=== PATIENT | male | born 2000 | race Caucasian/White ===

== ENCOUNTER 2020-01-26 12:26 | Emergency (ER) | payer MEDICAID, OTHER ==
[~2020-01-26] VITALS: Ht 165.1 cm; Wt 68.2 kg
[~2020-01-26 12:26] MED LIST: ALBU6.7H9 INH; FOCALIN; RISP0.5T38 PO
[2020-01-26 13:27] VITALS: BP 123/78
[2020-01-26] MEDS ORDERED: acetaminophen 325mg tablet PO ONE (13:50)
[2020-01-26] MEDS ORDERED: TETanus/Pertussis (Acell)/Diphther VAC/PF (Tdap-Adult) 0.5ml syringe IMVAC ONE (13:50)
[2020-01-26] MEDS ORDERED: LIDOcaine 1% W/epiNEPHrine 1:200,000 10ml vial IJ ONE (13:50)
--- NOTE | 2020-01-26 14:16 | NUR ---
Nelson DONATO called with
== END 2020-01-26 14:41 | disposition home or self-care (01) ==
LOC: ER 12:26
DX: S01.81XA Laceration without foreign body of other part of head, initial encounter (principal); J45.909 Unspecified asthma, uncomplicated; F41.0 Panic disorder [episodic paroxysmal anxiety]; F10.10 Alcohol abuse, uncomplicated; F12.90 Cannabis use, unspecified, uncomplicated; Z88.0 Allergy status to penicillin; Z98.890 Other specified postprocedural states; Z79.899 Other long term (current) drug therapy; Y08.89XA Assault by other specified means, initial encounter; Y93.89 Activity, other specified; Y92.89 Other specified places as the place of occurrence of the external cause; Y99.8 Other external cause status
CPT/HCPCS: 12013; 90471; 90715; 99283

== ENCOUNTER 2021-12-04 09:27 | Emergency (ER) | payer MEDICAID, OTHER ==
[~2021-12-04] VITALS: Ht 167.6 cm; Wt 99.8 kg
[2021-12-04] MEDS ORDERED: ondansetron/PF 4mg/2ml inj IV ONE (09:50)
[2021-12-04] MEDS ORDERED: morphine 4 MG/ML inj SYRINge IV ONE (09:50)
[2021-12-04] MEDS ORDERED: iohexol 300mg/ml 100ml inj. ONE (09:57)
--- NOTE | 2021-12-04 10:05 | NUR ---
to ct via stretcher. per provider, ok to take pt to ct prior to labs.
--- NOTE | 2021-12-04 10:48 | NUR ---
cpsine cleared by provider.
[2021-12-04 11:00] VITALS: BP 113/70
[2021-12-04] MEDS ORDERED: IBUP-1984 PO ×2 (11:32→13:43)
--- NOTE | 2021-12-04 12:10 | NUR ---
sling provided for pt's right arm. steady ambulation, no distress.
== END 2021-12-04 12:18 | disposition home or self-care (01) ==
LOC: ER 09:28
DX: M25.521 Pain in right elbow (principal); M54.50 Low back pain, unspecified; J45.909 Unspecified asthma, uncomplicated; F41.9 Anxiety disorder, unspecified; F12.90 Cannabis use, unspecified, uncomplicated; Z98.890 Other specified postprocedural states; Z72.89 Other problems related to lifestyle; Z88.0 Allergy status to penicillin; Z79.899 Other long term (current) drug therapy; W19.XXXA Unspecified fall, initial encounter; Y93.89 Activity, other specified; Y92.89 Other specified places as the place of occurrence of the external cause; Y99.8 Other external cause status
CPT/HCPCS: 70450; 71260; 72125; 73080; 74177; 96374; 96375; 99285; J2270; J2405; Q9967

== ENCOUNTER 2021-12-06 10:29 | Emergency (ER) | payer OTHER ==
[~2021-12-06] VITALS: Ht 167.6 cm; Wt 100.0 kg
[~2021-12-06 10:29] MED LIST changes: +IBUP-1984 PO
[2021-12-06 10:34] VITALS: BP 126/87
== END 2021-12-06 10:40 | disposition home or self-care (01) ==
LOC: ER 10:29
DX: Z02.89 Encounter for other administrative examinations (principal); J45.909 Unspecified asthma, uncomplicated; F41.9 Anxiety disorder, unspecified; F12.90 Cannabis use, unspecified, uncomplicated; Z98.890 Other specified postprocedural states; Z72.89 Other problems related to lifestyle; Z88.0 Allergy status to penicillin; Z79.899 Other long term (current) drug therapy
CPT/HCPCS: 99281

== ENCOUNTER 2024-05-24 10:23 | Emergency (ER) | payer MEDICAID, OTHER ==
[~2024-05-24] VITALS: Ht 177.8 cm; Wt 85.0 kg
[~2024-05-24 10:23] MED LIST changes: +ALBU6.7H14 INH; -ALBU6.7H9 INH; -IBUP-1984 PO
[2024-05-24] MEDS: diazepam inj 5 MG/ML inj. IV ONE ×2 (11:02→12:05)
[2024-05-24] MEDS: diphenhydrAMINE 50 mg/ml inj IV ONE (11:03)
[2024-05-24] MEDS: normal saline 1000ML IV soln IVB ONE (11:03)
[2024-05-24] MEDS: metoclopramide 5 mg/ml inj IV ONE (11:03)
[2024-05-24 11:31] LABS: BASOPHILS # (AUTO) 0.1 X10'3 (0-0.2); BASOPHILS % (AUTO) 0.8 % (0-1); EOSINOPHILS # (AUTO) 0.1 X10'3 (0-0.9); EOSINOPHILS % (AUTO) 0.6 % (0-6); HEMATOCRIT 44.2 % (42.0-52.0); HEMOGLOBIN 15.1 g/dl (14.0-17.9); LYMPHOCYTES # (AUTO) 1.3 X10'3 (1.1-4.8); LYMPHOCYTES % (AUTO) 10.7 % (21-51); MEAN CORPUSCULAR HEMOGLOBIN 29.6 PG (27.0-31.0); MEAN CORPUSCULAR HGB CONC 34.1 g/dL (33.0-36.5); MEAN PLATELET VOLUME 8.8 FL (7.4-10.4); MONOCYTES # (AUTO) 0.5 X10'3 (0-0.9); MONOCYTES % (AUTO) 4.3 % (2-12); NEUTROPHILS # (AUTO) 10.5 X10'3 (1.8-7.7); NEUTROPHILS % (AUTO) 83.6 % (42-75); PLATELET COUNT 278 X10'3 (140-440); RED BLOOD COUNT 5.08 X10'6 (4.70-6.10); WHITE BLOOD COUNT 12.6 X10'3 (4.5-11.0)
[2024-05-24 11:41] LABS: ALANINE AMINOTRANSFERASE 39 U/L (12-78); ALBUMIN 4.8 G/DL (3.4-5.0); ALBUMIN/GLOBULIN RATIO 1.2 (1.1-1.5); ALKALINE PHOSPHATASE 127 IU/L (46-116); ANION GAP 14 (8-16); ASPARTATE AMINO TRANSFERASE 18 U/L (10-37); BILIRUBIN,TOTAL 0.7 MG/DL (0.1-1.0); BLOOD UREA NITROGEN 17 MG/DL (7-18); BUN/CREATININE RATIO 18.1 (10.0-20.0); CALCIUM 9.9 MG/DL (8.5-10.1); CHLORIDE 105 MMOL/L (99-107); CREATININE 0.94 MG/DL (0.60-1.10); GLUCOSE 162 MG/DL (70-104); LIPASE 22 U/L (16-77); POTASSIUM 3.5 MMOL/L (3.5-5.1); SODIUM 141 MMOL/L (135-145); TOTAL CARBON DIOXIDE 22.2 MMOL/L (24-32); TOTAL PROTEIN 8.8 G/DL (6.4-8.2); eCRCL 124 ML/MIN; eGFR > 90 ML/MIN
[2024-05-24 11:48] VITALS: TEMP 98.5
[2024-05-24] MEDS ORDERED: capsaicin 0.025% cream TP SCH (12:00)
[2024-05-24] MEDS: haloperidol lactate 5mg/ml inj IM ONE (12:05)
[2024-05-24] MEDS: pantoprazole 40 MG vial IV ONE (12:05)
[2024-05-24] MEDS ORDERED: CAPSAICIN HP (0.1%) cream TP SCH (12:29)
[2024-05-24 13:55] VITALS: BP 146/82; PULSE 62; RESP 14; O2SAT 95
== END 2024-05-24 13:55 | disposition home or self-care (01) ==
LOC: ER 10:23
DX: R11.2 Nausea with vomiting, unspecified (principal); F12.10 Cannabis abuse, uncomplicated; J45.909 Unspecified asthma, uncomplicated; F41.9 Anxiety disorder, unspecified; F15.90 Other stimulant use, unspecified, uncomplicated; F10.10 Alcohol abuse, uncomplicated; Z88.0 Allergy status to penicillin; Z79.899 Other long term (current) drug therapy; Y90.9 Presence of alcohol in blood, level not specified
CPT/HCPCS: 36415; 80053; 83690; 85025; 96361; 96365; 96366; 96372; 96375; 96376; 99284; J1200; J1630; J2765; J3360; J7030

== ENCOUNTER 2024-05-26 14:59 | Emergency (ER) | payer MEDICAID ==
[~2024-05-26] VITALS: Ht 177.8 cm; Wt 91.5 kg
[2024-05-26 15:44] LABS: BASOPHILS % (AUTO) 0.3 % (0-1); EOSINOPHILS % (AUTO) 0.2 % (0-6); HEMATOCRIT 44.5 % (42.0-52.0); HEMOGLOBIN 15.3 g/dl (14.0-17.9); MEAN CORPUSCULAR HEMOGLOBIN 29.7 PG (27.0-31.0); MEAN CORPUSCULAR HGB CONC 34.4 g/dL (33.0-36.5); MEAN CORPUSCULAR VOLUME 86.2 FL (78-98); MEAN PLATELET VOLUME 8.4 FL (7.4-10.4); MONOCYTES # (AUTO) 0.6 X10'3 (0-0.9); MONOCYTES % (AUTO) 4.8 % (2-12); NEUTROPHILS # (AUTO) 10.4 X10'3 (1.8-7.7); NEUTROPHILS % (AUTO) 86.7 % (42-75); PLATELET COUNT 287 X10'3 (140-440); RED BLOOD COUNT 5.16 X10'6 (4.70-6.10); RED CELL DISTRIBUTION WIDTH 13.5 % (11.5-14.5)
[2024-05-26 15:54] LABS: ALANINE AMINOTRANSFERASE 54 U/L (12-78); ALBUMIN 5.1 G/DL (3.4-5.0); ALBUMIN/GLOBULIN RATIO 1.3 (1.1-1.5); ALKALINE PHOSPHATASE 127 IU/L (46-116); AMYLASE 33 U/L (25-115); ANION GAP 13 (8-16); ASPARTATE AMINO TRANSFERASE 32 U/L (10-37); BILIRUBIN,TOTAL 1.1 MG/DL (0.1-1.0); BLOOD UREA NITROGEN 14 MG/DL (7-18); BUN/CREATININE RATIO 15.9 (10.0-20.0); CALCIUM 10.3 MG/DL (8.5-10.1); CHLORIDE 102 MMOL/L (99-107); CREATININE 0.88 MG/DL (0.60-1.10); GLUCOSE 132 MG/DL (70-104); LIPASE 34 U/L (16-77); POTASSIUM 3.1 MMOL/L (3.5-5.1); SODIUM 139 MMOL/L (135-145); TOTAL CARBON DIOXIDE 23.9 MMOL/L (24-32); TOTAL PROTEIN 9.1 G/DL (6.4-8.2); eCRCL 133 ML/MIN; eGFR > 90 ML/MIN
[2024-05-26 16:02] LABS: MAGNESIUM 2.1 MG/DL (1.5-2.4)
[2024-05-26] MEDS: normal saline 1000ML IV soln IVB ONE (16:04)
[2024-05-26] MEDS: ondansetron/PF 4mg/2ml inj IV ONE (16:05)
[2024-05-26] MEDS: diphenhydrAMINE 50 mg/ml inj IM ONE (16:05)
[2024-05-26] MEDS: metoclopramide 5 mg/ml inj IV ONE (17:20)
[2024-05-26 17:22] LABS: BILIRUBIN,URINE SMALL (Neg); CLARITY,URINE CLEAR (Clear); GLUCOSE, URINE NEGATIVE (Neg); KETONES,URINE TRACE mg/dl (Neg); LEUKOCYTE ESTERASE ,URINE NEGATIVE (Neg); NITRITES, URINE NEGATIVE (Neg); OCCULT BLOOD,URINE NEGATIVE (Neg); PH,URINE 6.5 (4.8-8.0); PROTEIN,URINE TRACE mg/dl (Neg); UROBILINOGEN,URINE 0.2 E.U/dL (0.2-1.0)
[2024-05-26 17:27] LABS: COLOR,URINE DARK YELLOW (Yellow); UA COLLECTION TYPE CLN CATCH MIDSTREAM
[2024-05-26 17:29] LABS: BACTERIA,URINE NONE SEEN /HPF (Neg); MUCUS STRANDS MANY /LPF (Neg); RBC,URINE 0-2 /HPF (0-2); SQUAMOUS EPITHELIAL CELL,UR FEW /LPF (FEW); WBC,URINE 0-4 /HPF (0-4)
[2024-05-26 18:32] VITALS: BP 116/52; PULSE 61; RESP 16; O2SAT 96
[2024-05-26] MEDS ORDERED: DIPH25CA83 PO (19:16)
[2024-05-26] MEDS ORDERED: METO10TA3 PO (19:16)
[2024-05-26 19:30] VITALS: TEMP 97.5
[2024-05-26] MEDS: metoclopramide 10mg tablet PO ONE (19:30)
[2024-05-27] MEDS ORDERED: ONDA-243 PO (14:01)
== END 2024-05-26 19:50 | disposition home or self-care (01) ==
LOC: ER 15:00
DX: R11.10 Vomiting, unspecified (principal); J45.909 Unspecified asthma, uncomplicated; F12.90 Cannabis use, unspecified, uncomplicated; Z88.0 Allergy status to penicillin; Z79.899 Other long term (current) drug therapy
CPT/HCPCS: 36415; 80053; 81001; 82150; 83690; 83735; 85025; 96361; 96372; 96374; 96375; 99284; J1200; J2405; J2765; J7030

== ENCOUNTER 2024-05-27 11:55 | Emergency (ER) | payer MEDICAID ==
[~2024-05-27] VITALS: Ht 172.7 cm; Wt 91.2 kg
[~2024-05-27 11:55] MED LIST changes: +DIPH25CA83 PO; +METO10TA3 PO
[2024-05-27] MEDS: LORazepam 2 mg/ml vial IM ONE (12:17)
[2024-05-27] MEDS: ketorolac trometh. 30mg/ml inj. IM ONE (12:18)
[2024-05-27] MEDS: diphenhydrAMINE 50 mg/ml inj IM ONE (12:19)
[2024-05-27] MEDS: proCHLORperazine 10 MG/2 ml inj IM ONE (12:21)
[2024-05-27] MEDS: ondansetron 4mg rapidly disintigrating tab PO ONE ×2 (12:58→14:08)
[2024-05-27] MEDS: potassium Cl 20 mEq SR tablet PO ONE (12:58)
[2024-05-27 13:00] LABS: ALBUMIN 4.9 G/DL (3.4-5.0); ANION GAP 16 (8-16); CALCIUM 9.9 MG/DL (8.5-10.1); CHLORIDE 102 MMOL/L (99-107); GLUCOSE 125 MG/DL (70-104); SODIUM 142 MMOL/L (135-145); TOTAL CARBON DIOXIDE 23.9 MMOL/L (24-32); eCRCL 137 ML/MIN; eGFR > 90 ML/MIN
[2024-05-27 13:10] LABS: BLOOD UREA NITROGEN 13 MG/DL (7-18); BUN/CREATININE RATIO 16.3 (10.0-20.0)
[2024-05-27] MEDS ORDERED: ONDA-243 PO (14:01)
[2024-05-27] MEDS: potassium Cl 20 mEq SR tablet PO STA (14:04)
[2024-05-27 14:09] VITALS: BP 118/50; PULSE 60; RESP 16; TEMP 98; O2SAT 96
== END 2024-05-27 14:11 | disposition home or self-care (01) ==
LOC: ER 11:55
DX: R11.10 Vomiting, unspecified (principal); J45.909 Unspecified asthma, uncomplicated; F12.90 Cannabis use, unspecified, uncomplicated; Z88.0 Allergy status to penicillin; Z79.899 Other long term (current) drug therapy
CPT/HCPCS: 36415; 80048; 96372; 99284; J0780; J1200; J1885; J2060

== ENCOUNTER 2024-11-03 16:31 | Emergency (ER) | payer MEDICAID ==
[~2024-11-03] VITALS: Ht 167.6 cm; Wt 89.1 kg
[~2024-11-03 16:31] MED LIST changes: -METO10TA3 PO; +ONDA-243 PO
[2024-11-03 17:51] LABS: BILIRUBIN,URINE MODERATE (Neg); CLARITY,URINE CLEAR (Clear); COLOR,URINE YELLOW (Yellow); GLUCOSE, URINE NEGATIVE (Neg); KETONES,URINE >=80 mg/dl (Neg); LEUKOCYTE ESTERASE ,URINE NEGATIVE (Neg); NITRITES, URINE NEGATIVE (Neg); OCCULT BLOOD,URINE NEGATIVE (Neg); PROTEIN,URINE 100 mg/dl (Neg)
[2024-11-03] MEDS: ondansetron/PF 4mg/2ml inj IV ONE (17:52)
[2024-11-03] MEDS: normal saline 1000ML IV soln IVB ONE (17:52)
[2024-11-03 17:55] LABS: UA COLLECTION TYPE CLN CATCH MIDSTREAM
[2024-11-03 17:56] LABS: BACTERIA,URINE NONE SEEN /HPF (Neg); MUCUS STRANDS FEW /LPF (Neg); RBC,URINE NONE SEEN /HPF (0-2); SQUAMOUS EPITHELIAL CELL,UR FEW /LPF (FEW); TRANSITIONAL EPI CELLS,URINE FEW /HPF; WBC,URINE 0-4 /HPF (0-4)
[2024-11-03] MEDS: diphenhydrAMINE 50 mg/ml inj IV ONE (18:14)
[2024-11-03] MEDS: metoclopramide 5 mg/ml inj IV ONE (18:14)
[2024-11-03 18:25] LABS: BASOPHILS % (AUTO) 0.1 % (0-1); EOSINOPHILS % (AUTO) 0.1 % (0-6); HEMATOCRIT 45.8 % (42.0-52.0); HEMOGLOBIN 15.5 g/dl (14.0-17.9); LYMPHOCYTES # (AUTO) 0.9 X10'3 (1.1-4.8); MEAN CORPUSCULAR HEMOGLOBIN 29.7 PG (27.0-31.0); MEAN CORPUSCULAR HGB CONC 33.7 g/dL (33.0-36.5); MEAN CORPUSCULAR VOLUME 88.2 FL (78-98); MEAN PLATELET VOLUME 8.4 FL (7.4-10.4); MONOCYTES # (AUTO) 0.7 X10'3 (0-0.9); NEUTROPHILS # (AUTO) 16.1 X10'3 (1.8-7.7); NEUTROPHILS % (AUTO) 90.8 % (42-75); PLATELET COUNT 337 X10'3 (140-440); RED BLOOD COUNT 5.19 X10'6 (4.70-6.10); RED CELL DISTRIBUTION WIDTH 12.9 % (11.5-14.5); WHITE BLOOD COUNT 17.7 X10'3 (4.5-11.0)
[2024-11-03 18:41] LABS: ALANINE AMINOTRANSFERASE 40 U/L (12-78); ALBUMIN 4.9 G/DL (3.4-5.0); ALBUMIN/GLOBULIN RATIO 1.1 (1.1-1.5); ALKALINE PHOSPHATASE 140 IU/L (46-116); ANION GAP 14 (8-16); ASPARTATE AMINO TRANSFERASE 23 U/L (10-37); BLOOD UREA NITROGEN 18 MG/DL (7-18); BUN/CREATININE RATIO 19.8 (10.0-20.0); CALCIUM 10.1 MG/DL (8.5-10.1); CHLORIDE 103 MMOL/L (99-107); CREATININE 0.91 MG/DL (0.60-1.10); GLUCOSE 144 MG/DL (70-104); LIPASE 15 U/L (16-77); POTASSIUM 3.4 MMOL/L (3.5-5.1); SODIUM 142 MMOL/L (135-145); TOTAL CARBON DIOXIDE 25.3 MMOL/L (24-32); TOTAL PROTEIN 9.2 G/DL (6.4-8.2); eCRCL 112 ML/MIN; eGFR > 90 ML/MIN
[2024-11-03] MEDS ORDERED: ONDA-243 PO (18:47)
[2024-11-03 19:37] VITALS: BP 134/85; PULSE 74; RESP 15; TEMP 97.9; O2SAT 100
== END 2024-11-03 19:38 | disposition home or self-care (01) ==
LOC: ER 16:32
DX: B34.9 Viral infection, unspecified (principal); J45.909 Unspecified asthma, uncomplicated; F12.90 Cannabis use, unspecified, uncomplicated; Z88.0 Allergy status to penicillin; Z79.899 Other long term (current) drug therapy; Z87.891 Personal history of nicotine dependence
CPT/HCPCS: 36415; 80053; 81001; 83690; 85025; 96361; 96374; 96375; 99284; J1200; J2405; J2765; J7030

== ENCOUNTER 2024-11-05 11:51 | Emergency (ER) | payer MEDICAID ==
[~2024-11-05] VITALS: Ht 167.6 cm; Wt 81.8 kg
[2024-11-05 12:31] LABS: BASOPHILS # (AUTO) 0.1 X10'3 (0-0.2); BASOPHILS % (AUTO) 0.7 % (0-1); EOSINOPHILS # (AUTO) 0.1 X10'3 (0-0.9); EOSINOPHILS % (AUTO) 0.7 % (0-6); HEMATOCRIT 42.9 % (42.0-52.0); HEMOGLOBIN 14.7 g/dl (14.0-17.9); LYMPHOCYTES % (AUTO) 12.8 % (21-51); MEAN CORPUSCULAR HEMOGLOBIN 30.1 PG (27.0-31.0); MEAN CORPUSCULAR HGB CONC 34.2 g/dL (33.0-36.5); MEAN PLATELET VOLUME 8.4 FL (7.4-10.4); MONOCYTES # (AUTO) 0.8 X10'3 (0-0.9); MONOCYTES % (AUTO) 5.4 % (2-12); NEUTROPHILS # (AUTO) 12.3 X10'3 (1.8-7.7); NEUTROPHILS % (AUTO) 80.4 % (42-75); PLATELET COUNT 327 X10'3 (140-440); RED BLOOD COUNT 4.87 X10'6 (4.70-6.10); RED CELL DISTRIBUTION WIDTH 12.7 % (11.5-14.5); WHITE BLOOD COUNT 15.3 X10'3 (4.5-11.0)
[2024-11-05 12:50] LABS: ALANINE AMINOTRANSFERASE 44 U/L (12-78); ALBUMIN 4.4 G/DL (3.4-5.0); ALBUMIN/GLOBULIN RATIO 1.1 (1.1-1.5); ALKALINE PHOSPHATASE 126 IU/L (46-116); ANION GAP 14 (8-16); ASPARTATE AMINO TRANSFERASE 23 U/L (10-37); BILIRUBIN,TOTAL 0.6 MG/DL (0.1-1.0); BLOOD UREA NITROGEN 16 MG/DL (7-18); BUN/CREATININE RATIO 21.1 (10.0-20.0); CALCIUM 9.7 MG/DL (8.5-10.1); CHLORIDE 105 MMOL/L (99-107); CREATININE 0.76 MG/DL (0.60-1.10); GLUCOSE 109 MG/DL (70-104); LIPASE 28 U/L (16-77); POTASSIUM 3.7 MMOL/L (3.5-5.1); SODIUM 142 MMOL/L (135-145); TOTAL CARBON DIOXIDE 23.3 MMOL/L (24-32); TOTAL PROTEIN 8.4 G/DL (6.4-8.2); eCRCL 134 ML/MIN; eGFR > 90 ML/MIN
[2024-11-05 13:13] VITALS: TEMP 98
[2024-11-05] MEDS: ondansetron/PF 4mg/2ml inj IV ONE (13:23)
[2024-11-05] MEDS: normal saline 1000ML IV soln IVB ONE (13:23)
[2024-11-05] MEDS: haloperidol lactate 5mg/ml inj IM ONE (13:52)
[2024-11-05] MEDS: diphenhydrAMINE 50 mg/ml inj IV ONE (13:53)
[2024-11-05] MEDS ORDERED: METO5TAB85 PO (15:00)
[2024-11-05 15:27] VITALS: BP 137/84; PULSE 50; RESP 18; O2SAT 99
== END 2024-11-05 15:29 | disposition home or self-care (01) ==
LOC: ER 11:52
DX: R11.2 Nausea with vomiting, unspecified (principal); R19.7 Diarrhea, unspecified; J45.909 Unspecified asthma, uncomplicated; F12.90 Cannabis use, unspecified, uncomplicated; Z88.0 Allergy status to penicillin; Z79.899 Other long term (current) drug therapy
CPT/HCPCS: 36415; 80053; 83690; 85025; 96361; 96372; 96374; 96375; 99284; J1200; J1630; J2405; J7030

== ENCOUNTER 2025-01-27 13:28 | Emergency (ER) | payer MEDICAID ==
[~2025-01-27] VITALS: Ht 167.6 cm; Wt 87.0 kg
[~2025-01-27 13:28] MED LIST changes: +METO5TAB85 PO
[2025-01-27] MEDS ORDERED: metoclopramide 5 mg/ml inj IV ONE (13:55)
[2025-01-27] MEDS: normal saline 1000ML IV soln IVB ONE ×2 (14:17)
[2025-01-27] MEDS: metoclopramide 5 mg/ml inj IV ONE (14:17)
[2025-01-27] MEDS: diphenhydrAMINE 50 mg/ml inj IV ONE (14:17)
[2025-01-27] MEDS: haloperidol lactate 5mg/ml inj IM ONE ×2 (14:18→17:11)
[2025-01-27 14:44] LABS: BILIRUBIN,URINE SMALL (Neg); CLARITY,URINE SLIGHTLY CLOUDY (Clear); COLOR,URINE YELLOW (Yellow); GLUCOSE, URINE NEGATIVE (Neg); KETONES,URINE >=80 mg/dl (Neg); LEUKOCYTE ESTERASE ,URINE NEGATIVE (Neg); NITRITES, URINE NEGATIVE (Neg); OCCULT BLOOD,URINE NEGATIVE (Neg); PROTEIN,URINE 30 mg/dl (Neg); UROBILINOGEN,URINE 0.2 E.U/dL (0.2-1.0)
[2025-01-27 14:49] LABS: UA COLLECTION TYPE CLN CATCH MIDSTREAM
[2025-01-27 14:51] LABS: BASOPHILS # (AUTO) 0.1 X10'3 (0-0.2); BASOPHILS % (AUTO) 0.4 % (0-1); EOSINOPHILS % (AUTO) 0.1 % (0-6); HEMATOCRIT 44.3 % (42.0-52.0); HEMOGLOBIN 15.2 g/dl (14.0-17.9); LYMPHOCYTES % (AUTO) 7.9 % (21-51); MEAN CORPUSCULAR HEMOGLOBIN 29.7 PG (27.0-31.0); MEAN CORPUSCULAR HGB CONC 34.3 g/dL (33.0-36.5); MEAN CORPUSCULAR VOLUME 86.7 FL (78-98); MEAN PLATELET VOLUME 8.7 FL (7.4-10.4); MONOCYTES # (AUTO) 0.3 X10'3 (0-0.9); MONOCYTES % (AUTO) 2.4 % (2-12); NEUTROPHILS # (AUTO) 11.4 X10'3 (1.8-7.7); NEUTROPHILS % (AUTO) 89.2 % (42-75); PLATELET COUNT 304 X10'3 (140-440); RED BLOOD COUNT 5.11 X10'6 (4.70-6.10); RED CELL DISTRIBUTION WIDTH 13.4 % (11.5-14.5); WHITE BLOOD COUNT 12.8 X10'3 (4.5-11.0)
[2025-01-27 14:51] LABS: BACTERIA,URINE NONE SEEN /HPF (Neg); MUCUS STRANDS MODERATE /LPF (Neg); RBC,URINE 0-2 /HPF (0-2); SQUAMOUS EPITHELIAL CELL,UR NONE SEEN /LPF (FEW); WBC,URINE 0-4 /HPF (0-4)
[2025-01-27 14:53] LABS: ALANINE AMINOTRANSFERASE 33 U/L (12-78); ALBUMIN 4.8 G/DL (3.4-5.0); ALBUMIN/GLOBULIN RATIO 1.3 (1.1-1.5); ALKALINE PHOSPHATASE 121 IU/L (46-116); ANION GAP 15 (8-16); ASPARTATE AMINO TRANSFERASE 11 U/L (10-37); BILIRUBIN,TOTAL 0.6 MG/DL (0.1-1.0); BLOOD UREA NITROGEN 17 MG/DL (7-18); BUN/CREATININE RATIO 27.4 (10.0-20.0); CALCIUM 10.1 MG/DL (8.5-10.1); CHLORIDE 105 MMOL/L (99-107); CREATININE 0.62 MG/DL (0.60-1.10); GLUCOSE 153 MG/DL (70-104); LIPASE 18 U/L (16-77); POTASSIUM 3.5 MMOL/L (3.5-5.1); SODIUM 141 MMOL/L (135-145); TOTAL CARBON DIOXIDE 21.4 MMOL/L (24-32); TOTAL PROTEIN 8.6 G/DL (6.4-8.2); eCRCL 164 ML/MIN; eGFR > 90 ML/MIN
[2025-01-27] MEDS: ringers solution, lactated 1000ml IV soln IV ONE ×2 (14:55→17:20)
[2025-01-27 16:32] VITALS: TEMP 97.9
[2025-01-27] MEDS: LORazepam 2 mg/ml vial IM ONE (17:35)
[2025-01-27 18:23] VITALS: BP 109/67; PULSE 87; RESP 14; O2SAT 100
== END 2025-01-27 18:00 | disposition home or self-care (01) ==
LOC: ER 13:28
DX: R11.2 Nausea with vomiting, unspecified (principal); J45.909 Unspecified asthma, uncomplicated; F12.90 Cannabis use, unspecified, uncomplicated; F41.9 Anxiety disorder, unspecified; F41.0 Panic disorder [episodic paroxysmal anxiety]; F10.10 Alcohol abuse, uncomplicated; Y90.9 Presence of alcohol in blood, level not specified; Z98.890 Other specified postprocedural states; Z88.0 Allergy status to penicillin; Z79.899 Other long term (current) drug therapy
CPT/HCPCS: 36415; 80053; 81001; 83690; 85025; 96361; 96372; 96374; 96375; 99284; J1200; J1630; J2060; J2765; J7030; J7120

== ENCOUNTER 2025-02-09 18:22 | Emergency (ER) | payer MEDICAID ==
[~2025-02-09] VITALS: Ht 172.7 cm; Wt 90.9 kg
[2025-02-09] MEDS: normal saline 1000ML IV soln IVB ONE (19:37)
[2025-02-09] MEDS: haloperidol lactate 5mg/ml inj IM ONE ×2 (19:40→22:58)
[2025-02-09 19:42] LABS: BASOPHILS % (AUTO) 0.2 % (0-1); EOSINOPHILS % (AUTO) 0.1 % (0-6); HEMATOCRIT 51.4 % (42.0-52.0); HEMOGLOBIN 17.6 g/dl (14.0-17.9); LYMPHOCYTES # (AUTO) 1.7 X10'3 (1.1-4.8); LYMPHOCYTES % (AUTO) 7.8 % (21-51); MEAN CORPUSCULAR HEMOGLOBIN 29.6 PG (27.0-31.0); MEAN CORPUSCULAR HGB CONC 34.3 g/dL (33.0-36.5); MEAN CORPUSCULAR VOLUME 86.3 FL (78-98); MEAN PLATELET VOLUME 8.3 FL (7.4-10.4); MONOCYTES # (AUTO) 1.5 X10'3 (0-0.9); MONOCYTES % (AUTO) 6.9 % (2-12); PLATELET COUNT 356 X10'3 (140-440); RED BLOOD COUNT 5.96 X10'6 (4.70-6.10); RED CELL DISTRIBUTION WIDTH 13.4 % (11.5-14.5); WHITE BLOOD COUNT 22.4 X10'3 (4.5-11.0)
[2025-02-09] MEDS: diphenhydrAMINE 50 mg/ml inj IV ONE (19:42)
[2025-02-09] MEDS: pantoprazole 40MG/NS 100ML BAG 100 ML IV ONE (19:49)
[2025-02-09] MEDS: pantoprazole 40 MG vial IV STA (19:53)
[2025-02-09 19:58] LABS: ALANINE AMINOTRANSFERASE 47 U/L (12-78); ALBUMIN 5.6 G/DL (3.4-5.0); ALBUMIN/GLOBULIN RATIO 1.1 (1.1-1.5); ALKALINE PHOSPHATASE 153 IU/L (46-116); ANION GAP 17 (8-16); ASPARTATE AMINO TRANSFERASE 26 U/L (10-37); BILIRUBIN,DIRECT 0.3 MG/DL (0-0.3); BILIRUBIN,TOTAL 1.3 MG/DL (0.1-1.0); BLOOD UREA NITROGEN 23 MG/DL (7-18); CHLORIDE 95 MMOL/L (99-107); CREATININE 1.35 MG/DL (0.60-1.10); ETHANOL < 10 MG/DL (<10); GLUCOSE 136 MG/DL (70-104); LIPASE 20 U/L (16-77); MAGNESIUM 2.2 MG/DL (1.5-2.4); SODIUM 134 MMOL/L (135-145); TOTAL CARBON DIOXIDE 21.8 MMOL/L (24-32); TOTAL PROTEIN 10.5 G/DL (6.4-8.2); eCRCL 81 ML/MIN; eGFR 64 ML/MIN
[2025-02-09] MEDS: D5-1/2NS w/20 mEq potassium per 1000ml IV ONE (20:53)
[2025-02-09 21:35] LABS: BILIRUBIN,URINE SMALL (Neg); CLARITY,URINE SLIGHTLY CLOUDY (Clear); COLOR,URINE YELLOW (Yellow); GLUCOSE, URINE NEGATIVE (Neg); KETONES,URINE 15 mg/dl (Neg); LEUKOCYTE ESTERASE ,URINE NEGATIVE (Neg); NITRITES, URINE NEGATIVE (Neg); OCCULT BLOOD,URINE TRACE-INTACT (Neg); PH,URINE 5.5 (4.8-8.0); PROTEIN,URINE 100 mg/dl (Neg); UROBILINOGEN,URINE 0.2 E.U/dL (0.2-1.0)
[2025-02-09 21:53] LABS: UA COLLECTION TYPE CLN CATCH MIDSTREAM
[2025-02-09 21:54] LABS: URINE AMPHETAMINE SCREEN NEGATIVE (Neg); URINE BARBITUATE SCREEN NEGATIVE (Neg); URINE BENZODIAZEPINES SCREEN NEGATIVE (Neg); URINE CANNABINOID SCREEN POSITIVE (Neg); URINE COCAINE SCREEN NEGATIVE (Neg); URINE METHADONE SCREEN NEGATIVE (Neg); URINE OPIATE SCREEN NEGATIVE (Neg); URINE PHENCYCLIDINE SCREEN NEGATIVE (Neg)
[2025-02-09 21:57] LABS: BACTERIA,URINE 1+ /HPF (Neg); MUCUS STRANDS MODERATE /LPF (Neg); RBC,URINE 0-2 /HPF (0-2); WBC,URINE 0-4 /HPF (0-4)
[2025-02-09 21:58] LABS: AMORPHOUS URATES 1+
[2025-02-09 22:04] LABS: SQUAMOUS EPITHELIAL CELL,UR FEW /LPF (FEW)
[2025-02-09] MEDS: diazepam inj 5 MG/ML inj. IV ONE (22:48)
[2025-02-09] MEDS ORDERED: ONDA-243 PO (22:48)
[2025-02-09 23:08] VITALS: BP 122/71; PULSE 98; RESP 18; TEMP 98.3; O2SAT 97
== END 2025-02-09 23:05 | disposition home or self-care (01) ==
LOC: ER 18:24
DX: F12.90 Cannabis use, unspecified, uncomplicated (principal); F17.200 Nicotine dependence, unspecified, uncomplicated; F41.9 Anxiety disorder, unspecified; J45.909 Unspecified asthma, uncomplicated; N17.9 Acute kidney failure, unspecified; Z88.0 Allergy status to penicillin; Z98.890 Other specified postprocedural states
CPT/HCPCS: 80048; 80076; 80305; 80320; 81001; 83690; 83735; 85025; 96361; 96372; 96374; 96375; 99284; J1200; J1630; J2470; J3360; J3480; J7030

== ENCOUNTER 2025-02-11 11:17 | Emergency (ER) | payer MEDICAID ==
[~2025-02-11] VITALS: Ht 172.7 cm; Wt 86.0 kg
[2025-02-11 11:22] VITALS: TEMP 97.6
[2025-02-11 12:03] LABS: BASOPHILS # (AUTO) 0.1 X10'3 (0-0.2); BASOPHILS % (AUTO) 0.6 % (0-1); EOSINOPHILS # (AUTO) 0.3 X10'3 (0-0.9); EOSINOPHILS % (AUTO) 1.7 % (0-6); HEMATOCRIT 47.5 % (42.0-52.0); LYMPHOCYTES % (AUTO) 12.5 % (21-51); MEAN CORPUSCULAR HEMOGLOBIN 29.5 PG (27.0-31.0); MEAN CORPUSCULAR HGB CONC 33.8 g/dL (33.0-36.5); MEAN CORPUSCULAR VOLUME 87.3 FL (78-98); MEAN PLATELET VOLUME 8.4 FL (7.4-10.4); MONOCYTES # (AUTO) 1.2 X10'3 (0-0.9); MONOCYTES % (AUTO) 7.2 % (2-12); NEUTROPHILS # (AUTO) 12.7 X10'3 (1.8-7.7); PLATELET COUNT 332 X10'3 (140-440); RED BLOOD COUNT 5.45 X10'6 (4.70-6.10); RED CELL DISTRIBUTION WIDTH 13.2 % (11.5-14.5); WHITE BLOOD COUNT 16.3 X10'3 (4.5-11.0)
[2025-02-11] MEDS: OLANZapine **IM** 10 mg inj. IM ONE (12:07)
[2025-02-11 12:13] LABS: ALANINE AMINOTRANSFERASE 54 U/L (12-78); ALBUMIN 4.8 G/DL (3.4-5.0); ALBUMIN/GLOBULIN RATIO 1.1 (1.1-1.5); ALKALINE PHOSPHATASE 133 IU/L (46-116); ANION GAP 10 (8-16); ASPARTATE AMINO TRANSFERASE 28 U/L (10-37); BILIRUBIN,TOTAL 1.3 MG/DL (0.1-1.0); BLOOD UREA NITROGEN 20 MG/DL (7-18); BUN/CREATININE RATIO 26.7 (10.0-20.0); CALCIUM 9.6 MG/DL (8.5-10.1); CHLORIDE 100 MMOL/L (99-107); CREATININE 0.75 MG/DL (0.60-1.10); GLUCOSE 105 MG/DL (70-104); LIPASE 37 U/L (16-77); POTASSIUM 3.8 MMOL/L (3.5-5.1); SODIUM 138 MMOL/L (135-145); eCRCL 146 ML/MIN; eGFR > 90 ML/MIN
[2025-02-11] MEDS: diphenhydrAMINE 50 mg/ml inj IV ONE (12:29)
[2025-02-11] MEDS: metoclopramide 5 mg/ml inj IV ONE ×2 (12:29→12:30)
[2025-02-11] MEDS: normal saline 1000ML IV soln IVB ONE (12:29)
[2025-02-11] MEDS: diazepam inj 5 MG/ML inj. IV ONE (13:19)
[2025-02-11] MEDS: ondansetron 4mg rapidly disintigrating tab PO ONE (14:55)
[2025-02-11 15:36] LABS: BILIRUBIN,URINE NEGATIVE (Neg); CLARITY,URINE CLEAR (Clear); GLUCOSE, URINE NEGATIVE (Neg); KETONES,URINE 15 mg/dl (Neg); LEUKOCYTE ESTERASE ,URINE NEGATIVE (Neg); NITRITES, URINE NEGATIVE (Neg); OCCULT BLOOD,URINE NEGATIVE (Neg); PROTEIN,URINE NEGATIVE (Neg); UROBILINOGEN,URINE 0.2 E.U/dL (0.2-1.0)
[2025-02-11 15:42] LABS: COLOR,URINE DARK YELLOW (Yellow); UA COLLECTION TYPE CLN CATCH MIDSTREAM; URINE AMPHETAMINE SCREEN NEGATIVE (Neg); URINE BARBITUATE SCREEN NEGATIVE (Neg); URINE BENZODIAZEPINES SCREEN POSITIVE (Neg); URINE CANNABINOID SCREEN POSITIVE (Neg); URINE COCAINE SCREEN NEGATIVE (Neg); URINE METHADONE SCREEN NEGATIVE (Neg); URINE OPIATE SCREEN NEGATIVE (Neg); URINE PHENCYCLIDINE SCREEN NEGATIVE (Neg)
[2025-02-11] MEDS ORDERED: METO10TA3 PO (16:59)
[2025-02-11] MEDS: ondansetron/PF 4mg/2ml inj IV STA (17:13)
[2025-02-11 17:18] VITALS: BP 131/84; PULSE 89; RESP 16; O2SAT 98
[2025-02-11] MEDS ORDERED: capsaicin 0.025% cream TP SCH (20:00)
== END 2025-02-11 17:20 | disposition home or self-care (01) ==
LOC: ER 11:17
DX: F12.90 Cannabis use, unspecified, uncomplicated (principal); F41.9 Anxiety disorder, unspecified; J45.909 Unspecified asthma, uncomplicated; Z88.0 Allergy status to penicillin; Z98.890 Other specified postprocedural states
CPT/HCPCS: 36415; 80053; 80305; 81003; 83690; 85025; 96361; 96372; 96374; 96375; 99284; J1200; J2405; J2765; J3360; J3490; J7030

== ENCOUNTER 2025-04-03 23:06 | Emergency (ER) | payer MEDICAID ==
[~2025-04-03] VITALS: Ht 167.6 cm; Wt 68.2 kg
[2025-04-03 23:09] VITALS: TEMP 98.2
--- NOTE | 2025-04-03 23:19 | Physician Documentation ---
History of Present Illness ~ Chief Complaint: Abdominal Pain w/vomiting Stated Complaint: ABD PAIN Time Seen by MD: 23:15 Primary Medical Doctor: Nelson Colin In HPI Patient presents to the emergency room with nausea vomiting since 7:00 a.m. this morning. Patient continues to use cannabis although he has been given a diagnosis of cannabis associated hyperemesis syndrome. He has had no medicines prior to arrival. Medication Reconciliation Allergies: Coded Allergies: Penicillins (Verified Allergy, Unknown, 02/09/25) Scheduled Albuterol Sulfate (Proventil Hfa), 2 PUFFS INH Q4H Diphenhydramine Hcl (Benadryl), 25 MG PO Q6H Risperidone (Risperidone), 0.5 MG PO BID, (Reported) Scheduled PRN Metoclopramide HCl (Reglan), 1 TAB PO Q6H PRN for nausea/vomiting ONDANSETRON ODT 4mg tablet (Ondansetron Odt), 1 TAB PO Q6H PRN PRN for nausea/vomiting ONDANSETRON ODT 4mg tablet (Ondansetron Odt), 1 TAB PO Q6H PRN PRN for nausea/vomiting ONDANSETRON ODT 4mg tablet (Ondansetron Odt), 1 TAB PO Q6H PRN PRN for nausea/vomiting Miscellaneous Medications [Focalin xr], (Reported) Past Medical History Past Medical History: Asthma, Bronchitis, *GI/HEPATOBILIARY*, Anxiety, Panic Disorder Past Surgical History: orthopedic surgeries Alcohol Use: Abuse Drug Use: marijuana Lives with: Mother Lives In: Home Review of Systems ROS General: Patient is awake, alert, oriented x4 in mild distress actively vomiting Head: Normocephalic and atraumatic. Eyes: Conjunctival normal. EOMI. PERRL. ENT: Mucous membranes moist. Neck: Supple, trachea is midline. Chest: Clear to auscultation bilaterally without rales, rhonchi, or wheezes. There is no accessory muscle use or retractions. Cardiac: RRR without murmurs, gallops, or rubs. Abd: Soft, nondistended, diffuse abdominal tenderness without peritonitis Physical Exam Vital Signs: Temperature: 98.2, Source: Temporal, Heart Rate: 120, Respiratory Rate: 18, BP: 145/98, Pulse Oximetry: 100, Weight: 68.200 Oxygen Flow Rate: 0 Progress Results/Orders Results/Orders Orders - LUÍS TANG MD Urinalysis, Cult If Indicated (04/03/25 23:08) Completed Orders - LUÍS TANG MD Cbc/Diff (04/03/25 23:08) BMP (04/03/25 23:08) Lipase (04/03/25 23:08) CMP (04/03/25 23:08) Normal Saline 1000ml (Sodium Chloride 10 (04/03/25 23:15) Ondansetron Inj. (Zofran 4mg/2ml Vial) (04/03/25 23:15) Metoclopramide Inj (Reglan Inj) (04/03/25 23:15) Haloperidol Lact. (Haldol) (04/03/25 23:15) Diphenhydramine Inj (Benadryl Inj.) (04/03/25 23:15) Normal Saline 1000ml (Sodium Chloride 10 (04/03/25 23:40) Medications Received in ER Medications (Trade) Dose Ordered Sig/Gissel Route PRN Reason Start Time Stop Time Status Last Admin Dose Admin Sodium Chloride 1,000 ml @ 1,000 mls/hr ONCE ONCE IV 04/03/25 23:15 04/04/25 00:14 DC 04/03/25 23:39 1,000 MLS/HR (Zofran 4mg/2ml vial) 8 mg ONCE ONCE IV 04/03/25 23:15 04/03/25 23:18 DC 04/03/25 23:38 8 MG (Reglan inj) 10 mg ONCE ONCE IV 04/03/25 23:15 04/03/25 23:20 DC 04/03/25 23:37 10 MG (Haldol) 5 mg ONCE ONCE IM 04/03/25 23:15 04/03/25 23:20 DC 04/03/25 23:30 5 MG (Benadryl inj.) 25 mg ONCE ONCE IV 04/03/25 23:15 04/03/25 23:18 DC 04/03/25 23:36 25 MG Sodium Chloride 1,000 ml @ 1,000 mls/hr ONCE ONCE IV 04/03/25 23:40 04/04/25 00:39 DC 04/04/25 00:34 1,000 MLS/HR Vital Signs 04/03/25 23:09 Temp 98.2 Pulse 120 Resp 18 B/P (MAP) 145/98 Pulse Ox 100 O2 Flow Rate 0 Laboratory Tests Test 04/03/25 23:22 White Blood Count 22.9 H Red Blood Count 6.20 H Hemoglobin 18.6 *H Hematocrit 52.9 H Mean Corpuscular Volume 85.4 Mean Corpuscular Hemoglobin 30.0 Mean Corpuscular Hemoglobin Concent 35.1 Red Cell Distribution Width 13.4 Platelet Count 393 Mean Platelet Volume 8.2 Neutrophils (%) (Auto) 89.7 H Lymphocytes (%) (Auto) 4.4 L Monocytes (%) (Auto) 5.6 Eosinophils (%) (Auto) 0 Basophils (%) (Auto) 0.3 Neutrophils # (Auto) 20.5 H Lymphocytes # (Auto) 1.0 L Monocytes # (Auto) 1.3 H Eosinophils # (Auto) 0.0 Basophils # (Auto) 0.1 CBC Comment Sodium Level 139 Potassium Level 3.2 L Chloride Level 98 L Carbon Dioxide Level 21.2 L Anion Gap 20 H Blood Urea Nitrogen 26 H Creatinine 2.10 H Estimated GFR/1.73 m2 39 BUN/Creatinine Ratio 12.4 Glucose Level 142 H Calcium Level 11.4 H Total Bilirubin 0.6 Aspartate Amino Transf (AST/SGOT) 15 Alanine Aminotransferase (ALT/SGPT) 24 Alkaline Phosphatase 185 H Total Protein 10.6 H Albumin 5.9 H Globulin 4.7 H Albumin/Globulin Ratio 1.3 Lipase 21 Chemistry Comments Medical Decision Making Findings Patient presents to the emergency room with vomiting. Patient has history of similar presentations associated with cannabis. Multiple antiemetics administered and patient was now tolerating p.o.. He did see Tahira's primary ea rlier today who prescribed Zofran however they did not have time to pick it up today. Patient advised to stop cannabis all together Diff Dx N/V/D:Considerations: Include: Appendicitis, Bowel obstruction, Dehydration, DKA, GE reflux, Inflammatory BD, Pancreatitis Departure Disposition: HOME / SELF CARE / HOMELESS Impression: Primary Impression: Cannabinoid hyperemesis syndrome Condition: Improved Discharge Instructions: Cannabis Use Disorder Additional Instructions: Stop using cannabis. pc support specialist your prescription for ondansetron Referrals: NO PRIMARY CARE PROVIDER (PCP) Education Educated: Patient, Family Educated regarding: diagnosis, treatment, need for follow up Signature Scribe Signature: No scribe Attestation: The note accurately reflects work and decisions made by me.Luís Tang MD 04/04/25 00:59 LUÍS TANG MD April 03, 2025 23:19
[2025-04-03 23:30] LABS: BASOPHILS # (AUTO) 0.1 X10'3 (0-0.2); BASOPHILS % (AUTO) 0.3 % (0-1); EOSINOPHILS % (AUTO) 0 % (0-6); HEMATOCRIT 52.9 % (42.0-52.0); LYMPHOCYTES % (AUTO) 4.4 % (21-51); MEAN CORPUSCULAR HGB CONC 35.1 g/dL (33.0-36.5); MEAN CORPUSCULAR VOLUME 85.4 FL (78-98); MEAN PLATELET VOLUME 8.2 FL (7.4-10.4); MONOCYTES # (AUTO) 1.3 X10'3 (0-0.9); MONOCYTES % (AUTO) 5.6 % (2-12); NEUTROPHILS # (AUTO) 20.5 X10'3 (1.8-7.7); NEUTROPHILS % (AUTO) 89.7 % (42-75); PLATELET COUNT 393 X10'3 (140-440); RED CELL DISTRIBUTION WIDTH 13.4 % (11.5-14.5); WHITE BLOOD COUNT 22.9 X10'3 (4.5-11.0)
[2025-04-03] MEDS: haloperidol lactate 5mg/ml inj IM ONE (23:30)
[2025-04-03 23:33] LABS: HEMOGLOBIN 18.6 g/dl (14.0-17.9)
[2025-04-03] MEDS: diphenhydrAMINE 50 mg/ml inj IV ONE (23:36)
[2025-04-03] MEDS: metoclopramide 5 mg/ml inj IV ONE (23:37)
[2025-04-03] MEDS: ondansetron/PF 4mg/2ml inj IV ONE (23:38)
[2025-04-03] MEDS: normal saline 1000ml 1,000 ML IV ONE (23:39)
[2025-04-03 23:44] LABS: ALANINE AMINOTRANSFERASE 24 U/L (12-78); ALBUMIN 5.9 G/DL (3.4-5.0); ALBUMIN/GLOBULIN RATIO 1.3 (1.1-1.5); ALKALINE PHOSPHATASE 185 IU/L (46-116); ANION GAP 20 (8-16); ASPARTATE AMINO TRANSFERASE 15 U/L (10-37); BILIRUBIN,TOTAL 0.6 MG/DL (0.1-1.0); BLOOD UREA NITROGEN 26 MG/DL (7-18); BUN/CREATININE RATIO 12.4 (10.0-20.0); CALCIUM 11.4 MG/DL (8.5-10.1); CHLORIDE 98 MMOL/L (99-107); GLUCOSE 142 MG/DL (70-104); LIPASE 21 U/L (16-77); POTASSIUM 3.2 MMOL/L (3.5-5.1); SODIUM 139 MMOL/L (135-145); TOTAL CARBON DIOXIDE 21.2 MMOL/L (24-32); TOTAL PROTEIN 10.6 G/DL (6.4-8.2); eCRCL 49 ML/MIN; eGFR 39 ML/MIN
[2025-04-04] MEDS: normal saline 1000ml 1,000 ML IV ONE ×2 (00:34→01:24)
[2025-04-04] MEDS ORDERED: POTA-207 PO (01:08)
[2025-04-04] MEDS: proCHLORperazine 10 MG/2 ml inj IV ONE (01:13)
[2025-04-04] MEDS: diazepam inj 5 MG/ML inj. IV ONE (02:24)
[2025-04-04 02:29] VITALS: BP 120/55; PULSE 74; RESP 16; O2SAT 99
== END 2025-04-04 02:30 | disposition home or self-care (01) ==
LOC: ER 23:07
DX: F12.90 Cannabis use, unspecified, uncomplicated (principal); J45.909 Unspecified asthma, uncomplicated; Z88.0 Allergy status to penicillin; F41.9 Anxiety disorder, unspecified
CPT/HCPCS: 36415; 80053; 83690; 85025; 96361; 96372; 96374; 96375; 99284; J0780; J1200; J1630; J2405; J2765; J3360; J7030

== ENCOUNTER 2025-04-06 10:01 | Emergency (ER) | payer MEDICAID ==
[~2025-04-06] VITALS: Ht 167.6 cm; Wt 68.9 kg
[~2025-04-06 10:01] MED LIST changes: +POTA-207 PO
[2025-04-06 10:46] LABS: BASOPHILS # (AUTO) 0.1 X10'3 (0-0.2); BASOPHILS % (AUTO) 0.7 % (0-1); EOSINOPHILS # (AUTO) 0.1 X10'3 (0-0.9); EOSINOPHILS % (AUTO) 0.7 % (0-6); HEMOGLOBIN 14.9 g/dl (14.0-17.9); LYMPHOCYTES # (AUTO) 1.4 X10'3 (1.1-4.8); LYMPHOCYTES % (AUTO) 10.6 % (21-51); MEAN CORPUSCULAR HEMOGLOBIN 29.8 PG (27.0-31.0); MEAN CORPUSCULAR HGB CONC 34.7 g/dL (33.0-36.5); MEAN CORPUSCULAR VOLUME 85.8 FL (78-98); MEAN PLATELET VOLUME 8.2 FL (7.4-10.4); MONOCYTES # (AUTO) 0.9 X10'3 (0-0.9); MONOCYTES % (AUTO) 7.2 % (2-12); NEUTROPHILS # (AUTO) 10.4 X10'3 (1.8-7.7); NEUTROPHILS % (AUTO) 80.8 % (42-75); PLATELET COUNT 280 X10'3 (140-440); RED BLOOD COUNT 5.01 X10'6 (4.70-6.10); RED CELL DISTRIBUTION WIDTH 12.9 % (11.5-14.5); WHITE BLOOD COUNT 12.9 X10'3 (4.5-11.0)
[2025-04-06 10:57] LABS: ALANINE AMINOTRANSFERASE 41 U/L (12-78); ALBUMIN 4.4 G/DL (3.4-5.0); ALBUMIN/GLOBULIN RATIO 1.4 (1.1-1.5); ALKALINE PHOSPHATASE 125 IU/L (46-116); ANION GAP 10 (8-16); ASPARTATE AMINO TRANSFERASE 26 U/L (10-37); BILIRUBIN,TOTAL 0.9 MG/DL (0.1-1.0); BLOOD UREA NITROGEN 12 MG/DL (7-18); BUN/CREATININE RATIO 15.6 (10.0-20.0); CALCIUM 9.1 MG/DL (8.5-10.1); CHLORIDE 102 MMOL/L (99-107); CREATININE 0.77 MG/DL (0.60-1.10); GLUCOSE 124 MG/DL (70-104); LIPASE 24 U/L (16-77); POTASSIUM 3.2 MMOL/L (3.5-5.1); SODIUM 138 MMOL/L (135-145); TOTAL CARBON DIOXIDE 26.4 MMOL/L (24-32); TOTAL PROTEIN 7.6 G/DL (6.4-8.2); eCRCL 132 ML/MIN; eGFR > 90 ML/MIN
--- NOTE | 2025-04-06 11:47 | Physician Documentation ---
History of Present Illness ~ Chief Complaint: Abdominal Pain w/vomiting Stated Complaint: VOMITING Time Seen by MD: 11:46 Primary Medical Doctor: Nelson Colin In Mode of Arrival: POV HPI 24-year-old male, history of marijuana use and recurrent episodes of vomiting, who presents with generalized abdominal pain and vomiting. He tells me that over the past 1 year, he has been having episodes similar to today. Over the past couple of weeks he has had constant symptoms. He reports having generalized abdominal pain that is severe and constant. He reports uncontrollable vomiting. He has been to the emergency department this week already and was told maybe it was a viral syndrome. He does continue to use marijuana daily. He tells me he does not think that this is related to marijuana use. No fevers, chills or other infectious type symptoms. Medication Reconciliation Allergies: Coded Allergies: Penicillins (Verified Allergy, Unknown, 02/09/25) Scheduled Albuterol Sulfate (Proventil Hfa), 2 PUFFS INH Q4H Diphenhydramine Hcl (Benadryl), 25 MG PO Q6H Potassium Chloride* (K-Dur*), 1 TAB PO DAILY Risperidone (Risperidone), 0.5 MG PO BID, (Reported) Scheduled PRN Metoclopramide HCl (Reglan), 1 TAB PO Q6H PRN for nausea/vomiting ONDANSETRON ODT 4mg tablet (Ondansetron Odt), 1 TAB PO Q6H PRN PRN for nausea/vomiting ONDANSETRON ODT 4mg tablet (Ondansetron Odt), 1 TAB PO Q6H PRN PRN for nausea/vomiting ONDANSETRON ODT 4mg tablet (Ondansetron Odt), 1 TAB PO Q6H PRN PRN for nausea/vomiting Promethazine HCl (Promethazine HCl), 1 TAB PO Q6H PRN PRN for nausea/vomiting Promethazine Hcl Supp.* (Promethegan Supp.*), 12.5 MG RC Q8H PRN for nausea/vomiting Miscellaneous Medications [Focalin xr], (Reported) Past Medical History Past Medical History: Asthma, Bronchitis, *GI/HEPATOBILIARY*, Anxiety, Panic Disorder Past Surgical History: orthopedic surgeries Alcohol Use: Abuse Drug Use: marijuana Lives with: Mother Lives In: Home Review of Systems Constitutional: Denies: fever Gastrointestinal: Reports: abdominal pain, nausea, vomiting Physical Exam Vital Signs: Temperature: 98.1, Source: Temporal, Heart Rate: 63, Respiratory Rate: 15, BP: 156/84, Pulse Oximetry: 100, Weight: 68.900 Physical Exam General:This is a thin young man, sitting in bed actively dry heaving and yelling at the same time, mother at bedside HEENT: Atraumatic, oropharynx appears dry Heart: Regular rate and rhythm, normal-appearing peripheral perfusion Lungs: normal work of breathing, normal oxygen saturation on room air Abdomen: Soft, nondistended, generalized tenderness reported in all quadrants, no rebound or guarding Neuro: Alert and oriented, no focal deficits Psychiatric: Appears frustrated, especially when I discuss marijuana use Progress Results/Orders Results/Orders Completed Orders - SHELIA MOORE MD Urinalysis, Cult If Indicated (04/06/25 10:18) Cbc/Diff (04/06/25 10:18) BMP (04/06/25 10:18) Lipase (04/06/25 10:18) CMP (04/06/25 10:18) Prochlorperazine Inj (Compazine Inj) (04/06/25 11:55) Normal Saline 1000ml (Sodium Chloride 10 (04/06/25 11:55) Diphenhydramine Inj (Benadryl Inj.) (04/06/25 11:55) Haloperidol Lact. (Haldol) (04/06/25 12:10) Ondansetron Inj. (Zofran 4mg/2ml Vial) (04/06/25 14:40) Medications Received in ER Medications (Trade) Dose Ordered Sig/Gissel Route PRN Reason Start Time Stop Time Status Last Admin Dose Admin (Compazine inj) 10 mg ONCE ONCE IV 04/06/25 11:55 04/06/25 11:57 DC 04/06/25 12:11 10 MG Sodium Chloride 1,000 ml @ 1,000 mls/hr ONCE ONCE IV 04/06/25 11:55 04/06/25 12:54 DC 04/06/25 12:14 1,000 MLS/HR (Benadryl inj.) 50 mg ONCE ONCE IV 04/06/25 11:55 04/06/25 11:57 DC 04/06/25 12:10 50 MG (Haldol) 2 mg ONCE ONCE IM 04/06/25 12:10 04/06/25 12:11 DC 04/06/25 12:20 2 MG (Zofran 4mg/2ml vial) 4 mg ONCE ONCE IV 04/06/25 14:40 04/06/25 14:41 DC 04/06/25 14:43 4 MG Vital Signs 04/06/25 04/06/25 04/06/25 04/06/25 10:14 10:59 13:29 14:47 Temp 98.1 98.1 98.4 Pulse 63 63 57 Resp 15 16 18 B/P (MAP) 156/84 125/95 (105) 118/69 Pulse Ox 100 99 100 Laboratory Tests Test 04/06/25 10:32 04/06/25 13:27 White Blood Count 12.9 H Red Blood Count 5.01 Hemoglobin 14.9 Hematocrit 43.0 Mean Corpuscular Volume 85.8 Mean Corpuscular Hemoglobin 29.8 Mean Corpuscular Hemoglobin Concent 34.7 Red Cell Distribution Width 12.9 Platelet Count 280 Mean Platelet Volume 8.2 Neutrophils (%) (Auto) 80.8 H Lymphocytes (%) (Auto) 10.6 L Monocytes (%) (Auto) 7.2 Eosinophils (%) (Auto) 0.7 Basophils (%) (Auto) 0.7 Neutrophils # (Auto) 10.4 H Lymphocytes # (Auto) 1.4 Monocytes # (Auto) 0.9 Eosinophils # (Auto) 0.1 Basophils # (Auto) 0.1 CBC Comment Sodium Level 138 Potassium Level 3.2 L Chloride Level 102 Carbon Dioxide Level 26.4 Anion Gap 10 Blood Urea Nitrogen 12 Creatinine 0.77 Estimated GFR/1.73 m2 > 90 BUN/Creatinine Ratio 15.6 Glucose Level 124 H Calcium Level 9.1 Total Bilirubin 0.9 Aspartate Amino Transf (AST/SGOT) 26 Alanine Aminotransferase (ALT/SGPT) 41 Alkaline Phosphatase 125 H Total Protein 7.6 Albumin 4.4 Globulin 3.2 Albumin/Globulin Ratio 1.4 Lipase 24 Chemistry Comments Urine Specimen Description Cln catch midstream Urine Color Yellow Urine Clarity Clear Urine pH 6.5 Urine Specific [place] 1.010 Urine Protein Negative Urine Glucose (UA) Negative Urine Ketones Negative Urine Occult Blood Negative Urine Nitrite Negative Urine Bilirubin Negative Urine Urobilinogen 0.2 Urine Leukocyte Esterase Negative Urine Culture Indicated Not ind Volume Urine Centrifuged 10 ml Urine Comment Medical Decision Making Additional Comments Differential includes cannabis hyperemesis, cyclic vomiting, dehydration, electrolyte derangement, viral syndrome, irritable bowel syndrome Assessment The patient presents with generalized abdominal pain with vomiting, with multiple past episodes and ER visits. He is a daily marijuana user. Per his history and exam this seems most consistent with cannabis hyperemesis syndrome. His laboratory testing shows mild dehydration and mild hypokalemia, but no other acute derangement. He was given treatment for presumed cannabis hyperemesis with good improvement. He will be discharged with nausea medications. He was counseled to stop all marijuana use or he will likely continue to have similar episodes. Departure Time of Disposition: 14:23 Impression: Primary Impression: Cannabinoid hyperemesis syndrome Condition: Improved Referrals: NO PRIMARY CARE PROVIDER (PCP) Prescriptions Promethazine Hcl Supp.* (Promethegan Supp.*) 12.5 Mg Supp.rect 12.5 MG RC Q8H PRN for nausea/vomiting for 12 Days, #2 SUPP.RECT 2 Refills Prov: SHELIA MOORE MD 04/06/25 Promethazine HCl (Promethazine HCl) 25 Mg Tablet 1 TAB PO Q6H PRN PRN for nausea/vomiting for 7 Days, #28 TAB Prov: SHELIA MOORE MD 04/06/25 Education Educated: Patient, Family Educated regarding: diagnosis, treatment Signature Scribe Signature: jl Attestation: SHELIA Cordero MD April 06, 2025 11:47
[2025-04-06] MEDS: diphenhydrAMINE 50 mg/ml inj IV ONE (12:10)
[2025-04-06] MEDS: proCHLORperazine 10 MG/2 ml inj IV ONE (12:11)
[2025-04-06] MEDS: normal saline 1000ml 1,000 ML IV ONE (12:14)
[2025-04-06] MEDS: haloperidol lactate 5mg/ml inj IM ONE (12:20)
[2025-04-06 13:46] LABS: BILIRUBIN,URINE NEGATIVE (Neg); CLARITY,URINE CLEAR (Clear); COLOR,URINE YELLOW (Yellow); GLUCOSE, URINE NEGATIVE (Neg); KETONES,URINE NEGATIVE (Neg); LEUKOCYTE ESTERASE ,URINE NEGATIVE (Neg); NITRITES, URINE NEGATIVE (Neg); OCCULT BLOOD,URINE NEGATIVE (Neg); PH,URINE 6.5 (4.8-8.0); PROTEIN,URINE NEGATIVE (Neg); UROBILINOGEN,URINE 0.2 E.U/dL (0.2-1.0)
[2025-04-06 13:50] LABS: UA COLLECTION TYPE CLN CATCH MIDSTREAM
[2025-04-06] MEDS ORDERED: PHE12.5R RC (14:29)
[2025-04-06] MEDS ORDERED: PROM25TA14 PO (14:29)
[2025-04-06] MEDS: ondansetron/PF 4mg/2ml inj IV ONE (14:43)
[2025-04-06 14:47] VITALS: BP 118/69; PULSE 57; RESP 18; TEMP 98.4; O2SAT 100
== END 2025-04-06 14:42 | disposition home or self-care (01) ==
LOC: ER 10:01
DX: R11.10 Vomiting, unspecified (principal); R10.84 Generalized abdominal pain; F12.90 Cannabis use, unspecified, uncomplicated; J45.909 Unspecified asthma, uncomplicated; E87.6 Hypokalemia; E86.0 Dehydration; F10.10 Alcohol abuse, uncomplicated; F41.9 Anxiety disorder, unspecified; F41.0 Panic disorder [episodic paroxysmal anxiety]; Z88.0 Allergy status to penicillin; Z79.899 Other long term (current) drug therapy; Z98.890 Other specified postprocedural states; Y90.9 Presence of alcohol in blood, level not specified
CPT/HCPCS: 36415; 80053; 81003; 83690; 85025; 96361; 96372; 96374; 96375; 99284; J0780; J1200; J1630; J2405; J7030

== ENCOUNTER 2025-05-11 16:16 | Emergency (ER) | payer MEDICAID ==
[~2025-05-11] VITALS: Ht 167.6 cm; Wt 79.8 kg
[~2025-05-11 16:16] MED LIST changes: +PHE12.5R RC; -POTA-207 PO
[2025-05-11 16:51] LABS: BASOPHILS % (AUTO) 0.2 % (0-1); EOSINOPHILS % (AUTO) 0.1 % (0-6); HEMATOCRIT 49.7 % (42.0-52.0); HEMOGLOBIN 16.8 g/dl (14.0-17.9); LYMPHOCYTES # (AUTO) 1.3 X10'3 (1.1-4.8); LYMPHOCYTES % (AUTO) 4.6 % (21-51); MEAN CORPUSCULAR HEMOGLOBIN 28.8 PG (27.0-31.0); MEAN CORPUSCULAR HGB CONC 33.8 g/dL (33.0-36.5); MEAN CORPUSCULAR VOLUME 85.3 FL (78-98); MEAN PLATELET VOLUME 8.5 FL (7.4-10.4); MONOCYTES # (AUTO) 0.9 X10'3 (0-0.9); MONOCYTES % (AUTO) 3.2 % (2-12); NEUTROPHILS # (AUTO) 25.5 X10'3 (1.8-7.7); NEUTROPHILS % (AUTO) 91.9 % (42-75); PLATELET COUNT 355 X10'3 (140-440); RED BLOOD COUNT 5.82 X10'6 (4.70-6.10); RED CELL DISTRIBUTION WIDTH 13.1 % (11.5-14.5)
[2025-05-11 16:58] LABS: WHITE BLOOD COUNT 27.8 X10'3 (4.5-11.0)
[2025-05-11 17:12] LABS: ALANINE AMINOTRANSFERASE 31 U/L (12-78); ALBUMIN 5.7 G/DL (3.4-5.0); ALBUMIN/GLOBULIN RATIO 1.4 (1.1-1.5); ALKALINE PHOSPHATASE 154 IU/L (46-116); ANION GAP 18 (8-16); ASPARTATE AMINO TRANSFERASE 20 U/L (10-37); BILIRUBIN,TOTAL 1.5 MG/DL (0.1-1.0); BLOOD UREA NITROGEN 19 MG/DL (7-18); BUN/CREATININE RATIO 18.6 (10.0-20.0); CALCIUM 10.6 MG/DL (8.5-10.1); CHLORIDE 101 MMOL/L (99-107); CREATININE 1.02 MG/DL (0.60-1.10); GLUCOSE 170 MG/DL (70-104); LIPASE 17 U/L (16-77); POTASSIUM 3.3 MMOL/L (3.5-5.1); SODIUM 140 MMOL/L (135-145); TOTAL PROTEIN 9.8 G/DL (6.4-8.2); eCRCL 99 ML/MIN; eGFR 88 ML/MIN
[2025-05-11 17:28] LABS: BILIRUBIN,URINE MODERATE (Neg); CLARITY,URINE SLIGHTLY CLOUDY (Clear); COLOR,URINE YELLOW (Yellow); GLUCOSE, URINE 100 mg/dl (Neg); KETONES,URINE >=80 mg/dl (Neg); LEUKOCYTE ESTERASE ,URINE NEGATIVE (Neg); NITRITES, URINE NEGATIVE (Neg); OCCULT BLOOD,URINE NEGATIVE (Neg); PROTEIN,URINE 100 mg/dl (Neg)
[2025-05-11 17:32] LABS: PLATELET ESTIMATE NORMAL; TOTAL CELLS COUNTED 100
[2025-05-11 17:35] LABS: UA COLLECTION TYPE URINAL
[2025-05-11 17:39] LABS: HYALINE CASTS >30 /LPF (NEGATIVE); MUCUS STRANDS MODERATE /LPF (Neg); SQUAMOUS EPITHELIAL CELL,UR FEW /LPF (FEW)
[2025-05-11 17:40] LABS: AMORPHOUS URATES 1+; BACTERIA,URINE FEW /HPF (Neg); RBC,URINE 0-2 /HPF (0-2); WBC,URINE 0-4 /HPF (0-4)
[2025-05-11] MEDS ORDERED: haloperidol lactate 5mg/ml inj IVH ONE (17:45)
[2025-05-11] MEDS: ringers solution, lacted 1,000 ML IV ONE (17:54)
[2025-05-11] MEDS: haloperidol lactate 5mg/ml inj IM ONE (18:04)
[2025-05-11] MEDS ORDERED: PROC25SU31 RC (18:27)
--- NOTE | 2025-05-11 18:27 | Physician Documentation ---
History of Present Illness ~ Chief Complaint: Abdominal Pain w/vomiting Stated Complaint: N/V Time Seen by MD: 16:33 Primary Medical Doctor: Nelson Walk In Source: patient Mode of Arrival: POV Exam Limitations: no limitations HPI 25-year-old male with cannabinoid hyperemesis syndrome who is here with generalized abdominal pain and vomiting which he has experienced on numerous occasions. He is still consuming marijuana. These symptoms started yesterday. Has tried zofran but not controlling symptoms. Medication Reconciliation Allergies: Coded Allergies: Penicillins (Verified Allergy, Unknown, 02/09/25) Scheduled Albuterol Sulfate (Proventil Hfa), 2 PUFFS INH Q4H Diphenhydramine Hcl (Benadryl), 25 MG PO Q6H Risperidone (Risperidone), 0.5 MG PO BID, (Reported) Scheduled PRN Metoclopramide HCl (Reglan), 1 TAB PO Q6H PRN for nausea/vomiting ONDANSETRON ODT 4mg tablet (Ondansetron Odt), 1 TAB PO Q6H PRN PRN for nausea/vomiting ONDANSETRON ODT 4mg tablet (Ondansetron Odt), 1 TAB PO Q6H PRN PRN for nausea/vomiting ONDANSETRON ODT 4mg tablet (Ondansetron Odt), 1 TAB PO Q6H PRN PRN for nausea/vomiting Prochlorperazine Maleate Supp* (Compazine Supp.*), 1 SUPP RC Q12H PRN for NAUSEA Promethazine Hcl Supp.* (Promethegan Supp.*), 12.5 MG RC Q8H PRN for nausea/vomiting Miscellaneous Medications [Focalin xr], (Reported) Discontinued Medications Potassium Chloride* (K-Dur*), 1 TAB PO DAILY Discontinued Reason: Auto Discontinued Past Medical History Past Medical History: Asthma, Bronchitis, *GI/HEPATOBILIARY*, Anxiety, Panic Disorder Past Surgical History: orthopedic surgeries Alcohol Use: Abuse Drug Use: marijuana Lives with: Mother Lives In: Home Review of Systems All Other Systems at this time: Reviewed and Negative Physical Exam Vital Signs: Temperature: 98.0, Source: Oral, Heart Rate: 73, Respiratory Rate: 18, BP: 106/63, Pulse Oximetry: 99, Weight: 79.800 Oxygen Flow Rate: 0 Physical Exam GENERAL: Alert, no acute distress. HEENT: NCAT, EOMI, PERRL, normal oropharynx, moist oral mucosa. NECK: Supple, trachea midline. CARDIAC: Regular rate and rhythm, no murmurs, rubs, or gallops. Equal distal pulses. No lower extremity edema, cap refill less than 2 seconds. RESPIRATORY: Equal breath sounds, clear to auscultation bilaterally, no respiratory distress. GASTROINTESTINAL: Non distended, soft, nontender, No guarding or rebound. MUSCULOSKELETAL: Normal range of motion, nontender, no swelling. Normal gait. NEUROLOGICAL: Awake, alert, and oriented x 3. SKIN: Warm/dry, no pallor, no rash. PSYCH: Alert and appropriate. Affect congruent with mood. Speech is clear. Good eye contact. Progress Results/Orders Results/Orders Completed Orders - ANGEL FITCH Ringers Solution, Lacted (Lactated Ringe (05/11/25 17:45) Haloperidol Lact. (Haldol) (05/11/25 18:05) Normal Saline 1000ml (Sodium Chloride 10 (05/11/25 18:20) Medications Received in ER Medications (Trade) Dose Ordered Sig/Gissel Route PRN Reason Start Time Stop Time Status Last Admin Dose Admin Lactated Ringer's 1,000 ml @ 0 mls/hr Q0M ONCE IV 05/11/25 17:45 05/11/25 17:46 DC 05/11/25 17:54 1,000 MLS/HR (Haldol) 5 mg ONCE ONCE IM 05/11/25 18:05 05/11/25 18:06 DC 05/11/25 18:04 5 MG (sodium chloride 1000ml IV soln) 1,000 ml ONCE ONCE IVB 05/11/25 18:20 05/11/25 18:21 DC 05/11/25 18:29 1,000 ML Vital Signs 05/11/25 05/11/25 05/11/25 16:22 17:00 18:04 Temp 98.0 Pulse 70 73 Resp 16 16 18 B/P (MAP) 138/78 106/63 (77) Pulse Ox 100 99 O2 Flow Rate 0 0 Laboratory Tests Test 05/11/25 16:33 05/11/25 17:16 White Blood Count 27.8 *H Red Blood Count 5.82 Hemoglobin 16.8 Hematocrit 49.7 Mean Corpuscular Volume 85.3 Mean Corpuscular Hemoglobin 28.8 Mean Corpuscular Hemoglobin Concent 33.8 Red Cell Distribution Width 13.1 Platelet Count 355 Mean Platelet Volume 8.5 Neutrophils (%) (Auto) 91.9 H Lymphocytes (%) (Auto) 4.6 L Monocytes (%) (Auto) 3.2 Eosinophils (%) (Auto) 0.1 Basophils (%) (Auto) 0.2 Neutrophils # (Auto) 25.5 H Lymphocytes # (Auto) 1.3 Monocytes # (Auto) 0.9 Eosinophils # (Auto) 0.0 Basophils # (Auto) 0.0 CBC Comment Differential Total Cells Counted 100 Neutrophils % (Manual) 91.0 H Band Neutrophils % 2.0 Lymphocytes % (Manual) 4.0 L Monocytes % (Manual) 3.0 Platelet Estimate Normal Red Blood Cell Morphology Normal Basophilic Stippling Sodium Level 140 Potassium Level 3.3 L Chloride Level 101 Carbon Dioxide Level 21.0 L Anion Gap 18 H Blood Urea Nitrogen 19 H Creatinine 1.02 Estimated GFR/1.73 m2 88 BUN/Creatinine Ratio 18.6 Glucose Level 170 H Calcium Level 10.6 H Total Bilirubin 1.5 H Aspartate Amino Transf (AST/SGOT) 20 Alanine Aminotransferase (ALT/SGPT) 31 Alkaline Phosphatase 154 H Total Protein 9.8 H Albumin 5.7 H Globulin 4.1 Albumin/Globulin Ratio 1.4 Lipase 17 Chemistry Comments Urine Specimen Description Urinal Urine Color Yellow Urine Clarity Slightly cloudy Urine pH 6.0 Urine Specific [place] >=1.030 Urine Protein 100 H Urine Glucose (UA) 100 H Urine Ketones >=80 Urine Occult Blood Negative Urine Nitrite Negative Urine Bilirubin Moderate Urine Urobilinogen 1.0 Urine Leukocyte Esterase Negative Urine RBC 0-2 Urine WBC 0-4 Urine Squamous Epithelial Cells Few Urine Amorphous Urates 1+ Urine Bacteria Few Urine Hyaline Casts >30 Urine Mucus Moderate Urine Culture Indicated Not ind Volume Urine Centrifuged 4 ml Urine Comment Low volume Medical Decision Making Diff Dx N/V/D:Considerations: Include: Appendicitis, Bowel obstruction, Dehydration, DKA, Diarrhea - bacterial, Diarrhea - parasitic, Diarrhea - viral, Diverticulitis, Diverticulosis, Drug toxicity, Electrolyte imbalance, Food poisoning, Gastroenteritis, GE reflux, GI bleed, Hepatitis, Hernia, Hypovolemia, Hypotension, Inflammatory BD, Impaction, Malnutrition, Pancreatitis, PUD, Renal failure, Urinary obstruction, UTI, Urolithiasis Additional Comments His elevated white count is consistent with inflammation secondary to his vomiting rather than infection. He has no bands. He is afebrile. His vital signs are normal. When I went back in trended his white counts it was higher than his last two ER visits however it is not uncommon for his white blood cell count to be above [id number]. Departure Time of Disposition: 18:27 Disposition: HOME / SELF CARE / HOMELESS Impression: Primary Impression: Cannabinoid hyperemesis syndrome Condition: Stable Discharge Instructions: Cannabinoid Hyperemesis Syndrome Additional Instructions: COMPAZINE SUPPOSITORIES SENT Referrals: NO PRIMARY CARE PROVIDER (PCP) Prescriptions Prochlorperazine Maleate Supp* (Compazine Supp.*) 25 Mg Supp 1 SUPP RC Q12H PRN for NAUSEA for 7 Days, #14 SUPP.RECT Prov: ANGEL FITCH 05/11/25 Education Educated: Patient Educated regarding: diagnosis, treatment, need for follow up Signature Scribe Signature: x Attestation: ANGEL Mayers May 11, 2025 18:27
[2025-05-11] MEDS: normal saline 1000ML IV soln IVB ONE (18:29)
[2025-05-11 19:11] VITALS: BP 134/80; PULSE 80; RESP 18; TEMP 97.8; O2SAT 99
== END 2025-05-11 19:13 | disposition home or self-care (01) ==
LOC: ER 16:17
DX: F12.90 Cannabis use, unspecified, uncomplicated (principal); R10.84 Generalized abdominal pain; J45.909 Unspecified asthma, uncomplicated; F41.9 Anxiety disorder, unspecified; Z88.0 Allergy status to penicillin
CPT/HCPCS: 80053; 81001; 83690; 85025; 96360; 96372; 99283; J1630; J7030; J7120; 85007

== ENCOUNTER 2025-05-13 12:17 | Emergency (ER) | payer MEDICAID ==
[~2025-05-13] VITALS: Ht 165.1 cm; Wt 69.9 kg
[~2025-05-13 12:17] MED LIST changes: +PROC25SU31 RC
[2025-05-13 13:02] LABS: BASOPHILS % (AUTO) 0.3 % (0-1); EOSINOPHILS % (AUTO) 0.1 % (0-6); HEMATOCRIT 45.2 % (42.0-52.0); HEMOGLOBIN 15.7 g/dl (14.0-17.9); LYMPHOCYTES # (AUTO) 1.2 X10'3 (1.1-4.8); LYMPHOCYTES % (AUTO) 9.3 % (21-51); MEAN CORPUSCULAR HEMOGLOBIN 29.4 PG (27.0-31.0); MEAN CORPUSCULAR HGB CONC 34.7 g/dL (33.0-36.5); MEAN CORPUSCULAR VOLUME 84.8 FL (78-98); MEAN PLATELET VOLUME 8.3 FL (7.4-10.4); MONOCYTES # (AUTO) 0.5 X10'3 (0-0.9); MONOCYTES % (AUTO) 3.9 % (2-12); NEUTROPHILS # (AUTO) 11.2 X10'3 (1.8-7.7); NEUTROPHILS % (AUTO) 86.4 % (42-75); PLATELET COUNT 292 X10'3 (140-440); RED BLOOD COUNT 5.34 X10'6 (4.70-6.10); RED CELL DISTRIBUTION WIDTH 13.1 % (11.5-14.5)
[2025-05-13 13:25] LABS: ALANINE AMINOTRANSFERASE 34 U/L (12-78); ALBUMIN/GLOBULIN RATIO 1.4 (1.1-1.5); ALKALINE PHOSPHATASE 133 IU/L (46-116); ANION GAP 10 (8-16); ASPARTATE AMINO TRANSFERASE 23 U/L (10-37); BILIRUBIN,TOTAL 0.8 MG/DL (0.1-1.0); BLOOD UREA NITROGEN 14 MG/DL (7-18); BUN/CREATININE RATIO 16.9 (10.0-20.0); CALCIUM 9.8 MG/DL (8.5-10.1); CHLORIDE 98 MMOL/L (99-107); CREATININE 0.83 MG/DL (0.60-1.10); GLUCOSE 134 MG/DL (70-104); LIPASE 24 U/L (16-77); POTASSIUM 3.6 MMOL/L (3.5-5.1); SODIUM 135 MMOL/L (135-145); TOTAL CARBON DIOXIDE 27.2 MMOL/L (24-32); TOTAL PROTEIN 8.7 G/DL (6.4-8.2); eCRCL 117 ML/MIN; eGFR > 90 ML/MIN
--- NOTE | 2025-05-13 13:33 | Physician Documentation ---
History of Present Illness Chief Complaint: Abdominal Pain w/vomiting Stated Complaint: N/V Primary Medical Doctor: Nelson Alvares HPI This is a 25-year-old male who presents with generalized abdominal pain with vomiting for the past 4-5 days. Patient reports constipation with last bowel movement around the time of onset of symptoms. Review of records indicate patient has history of cannabinoid hyperemesis syndrome and was seen here for the same two days prior with similar symptoms, patient was discharged with prescription for Compazine suppositories. Patient reports that he did take a Compazine suppository prior to coming in the hospital and his symptoms have began decreasing reporting last episode of vomiting was while he was in the emergency department lobby. Patient reports no fever. Patient reports no other acute symptoms or concerns. Medication Reconciliation Allergies: Coded Allergies: Penicillins (Verified Allergy, Unknown, 02/09/25) Scheduled Albuterol Sulfate (Proventil Hfa), 2 PUFFS INH Q4H Diphenhydramine Hcl (Benadryl), 25 MG PO Q6H Polyethylene Glycol 3350 (Clearlax), 17 GM PO DAILY Risperidone (Risperidone), 0.5 MG PO BID, (Reported) Scheduled PRN Metoclopramide HCl (Reglan), 1 TAB PO Q6H PRN for nausea/vomiting ONDANSETRON ODT 4mg tablet (Ondansetron Odt), 1 TAB PO Q6H PRN PRN for nausea/vomiting ONDANSETRON ODT 4mg tablet (Ondansetron Odt), 1 TAB PO Q6H PRN PRN for nausea/vomiting ONDANSETRON ODT 4mg tablet (Ondansetron Odt), 1 TAB PO Q6H PRN PRN for nausea/vomiting Prochlorperazine Maleate Supp* (Compazine Supp.*), 1 SUPP RC Q12H PRN for NAUSEA Promethazine Hcl Supp.* (Promethegan Supp.*), 12.5 MG RC Q8H PRN for nausea/vomiting Miscellaneous Medications [Focalin xr], (Reported) Past Medical History Past Medical History: Asthma, Bronchitis, *GI/HEPATOBILIARY*, Anxiety, Panic Disorder Past Surgical History: orthopedic surgeries Alcohol Use: Abuse Drug Use: marijuana Lives with: Mother Lives In: Home Physical Exam Vital Signs: Temperature: 98.7, Source: Temporal, Heart Rate: 78, Respiratory Rate: 15, BP: 127/67, Pulse Oximetry: 97, Weight: 69.900 Physical Exam VITALS: Reviewed and as above. GENERAL: Alert, nontoxic appearing, no apparent distress. RESPIRATORY: No increased work of breathing, no respiratory distress, speaking in full clear sentences, lung sounds clear in all caro CV: Regular rate and rhythm no murmur BACK: No CVA tenderness GI: Mild generalized abdominal tenderness otherwise soft, nondistended, no focal tenderness, no rebound, no guarding, bowel sounds present Progress Results/Orders Results/Orders Vital Signs 05/13/25 12:31 Temp 98.7 Pulse 78 Resp 15 B/P (MAP) 127/67 Pulse Ox 97 Laboratory Tests Test 05/13/25 12:48 White Blood Count 13.0 H Red Blood Count 5.34 Hemoglobin 15.7 Hematocrit 45.2 Mean Corpuscular Volume 84.8 Mean Corpuscular Hemoglobin 29.4 Mean Corpuscular Hemoglobin Concent 34.7 Red Cell Distribution Width 13.1 Platelet Count 292 Mean Platelet Volume 8.3 Neutrophils (%) (Auto) 86.4 H Lymphocytes (%) (Auto) 9.3 L Monocytes (%) (Auto) 3.9 Eosinophils (%) (Auto) 0.1 Basophils (%) (Auto) 0.3 Neutrophils # (Auto) 11.2 H Lymphocytes # (Auto) 1.2 Monocytes # (Auto) 0.5 Eosinophils # (Auto) 0.0 Basophils # (Auto) 0.0 CBC Comment Sodium Level 135 Potassium Level 3.6 Chloride Level 98 L Carbon Dioxide Level 27.2 Anion Gap 10 Blood Urea Nitrogen 14 Creatinine 0.83 Estimated GFR/1.73 m2 > 90 BUN/Creatinine Ratio 16.9 Glucose Level 134 H Calcium Level 9.8 Total Bilirubin 0.8 Aspartate Amino Transf (AST/SGOT) 23 Alanine Aminotransferase (ALT/SGPT) 34 Alkaline Phosphatase 133 H Total Protein 8.7 H Albumin 5.0 Globulin 3.7 Albumin/Globulin Ratio 1.4 Lipase 24 Chemistry Comments EKG/XRAY/CT/US/VASC/MRI EKG : Additional Comment EKG at 15:28 interpreted by myself as sinus bradycardia at a rate of 55, normal axis, QTC not prolonged, nonspecific T-wave changes. Abdominal X-Ray : Additional Comment Exam: DI ABDOMEN,SINGLE VIEW(KUB) Indication: Constipation and Abd pain Comparison: None Technique: 2 radiographic views of the abdomen. Findings: Scattered Gas throughout nondilated small and large bowel. No abnormal calcifications. No radiopaque foreign body. Lung bases are clear. Impression: Nonobstructive bowel gas pattern noted. Electronically Signed by:FLETCHER VANCE MD Date & Time: 05/13/251642 Dictated by: FLETCHER VANCE MD Dictation date and time: 05/13/251642 I have reviewed and agree with the radiology report. I have reviewed and interpreted the imaging as: Large stool burden in colon. No air-fluid levels, no intraperitoneal free air. Medical Decision Making Findings This otherwise well-appearing 25-year-old male with history of cannabis hyperemesis syndrome presented to the emergency department with vomiting and abdominal pain, physical exam demonstrated mild generalized abdominal tenderness without point tenderness, rebound, guarding, or other peritoneal signs. KUB obtained demonstrated evidence of constipation consistent with the patient's report of constipation. Otherwise patient's physical exam was benign, patient medicated with atypical antipsychotic used as antiemetic, 1st dose ineffective therefore a 2nd dose ordered, prior to administration of 2nd dose an EKG was obtained and did not demonstrate evidence of prolonged QTC. Second dose of a typical antipsychotic utilized as antiemetic was effective. Lab work was without significant abnormality. Patient reported significant improvement symptoms. Plan is to discharge patient home with medications to treat constipation at home, I discussed this point with patient and he agreed. Mark sanders provided home care instructions and return to care precautions which he verbalized understanding of. Differential Dx:Considerations: Include: Appendicitis, Bowel obstruction, Cholangitis, Cholelithasis, Constipation, Esophagitis, Gastritis/PUD, Gastroenteritis, Inflammatory BD, Ischemic bowel, Testicular torsion, Urinary obstruction, Urinary tract infection, Urolithiasis Departure Disposition: 01 HOME / SELF CARE / HOMELESS Impression: Primary Impression: Vomiting Qualified Codes: R11.2 - Nausea with vomiting, unspecified Additional Impression: Abdominal pain Qualified Codes: R10.84 - Generalized abdominal pain Condition: Improved Discharge Instructions: Abdominal Pain (Nonspecific) Additional Instructions: Please use the prescribed MiraLax for your constipation, please use the previously prescribed Compazine suppositories for continued nausea and vomiting. I recommend increasing your fluid dietary fiber and fluid intake to help treat and prevent constipation. As we discussed avoid cannabis products. Please foll ow up with your primary care provider in the next few days. Please return to the emergency department for any new or worsening concerning symptoms. Referrals: NO PRIMARY CARE PROVIDER (PCP) Prescriptions Polyethylene Glycol 3350 (Clearlax) 17 Gram/Dose Powder 17 GM PO DAILY for 7 Days, #119 POWDER Prov: SOFIA VANG 05/13/25 Education Educated: Patient Educated regarding: diagnosis, treatment, prognosis, need for follow up Additional Comment Medical Screen Exam This is a 25-year-old male who presents with generalized abdominal pain with vomiting for the past 4-5 days. Patient reports constipation with last bowel movement around the time of onset of symptoms. VITALS: Reviewed and as above. GENERAL: Alert, nontoxic appearing, no apparent distress. RESPIRATORY: No increased work of breathing, no respiratory distress, speaking in full clear sentences MSE performed in triage and patient returned to ED lobby by nursing staff to await available ED room The note accurately reflects work and decisions made by me.CHEPE Cox 05/13/25 13:36 Signature Scribe Signature: No scribe Attestation: The note accurately reflects work and decisions made by me.CHEPE Cox 05/13/25 22:05 SOFIA VANG May 13, 2025 13:33
[2025-05-13 14:40] LABS: BILIRUBIN,URINE NEGATIVE (Neg); CLARITY,URINE CLEAR (Clear); COLOR,URINE YELLOW (Yellow); GLUCOSE, URINE NEGATIVE (Neg); KETONES,URINE TRACE mg/dl (Neg); LEUKOCYTE ESTERASE ,URINE NEGATIVE (Neg); NITRITES, URINE NEGATIVE (Neg); OCCULT BLOOD,URINE NEGATIVE (Neg); PROTEIN,URINE NEGATIVE (Neg); UA COLLECTION TYPE CLN CATCH MIDSTREAM; UROBILINOGEN,URINE 0.2 E.U/dL (0.2-1.0)
[2025-05-13] MEDS: ketorolac trometh 15mg/ml vial 15 MG/ML ML IV ONE (14:53)
[2025-05-13] MEDS: normal saline 1000ML IV soln IVB ONE (14:53)
[2025-05-13] MEDS: OLANZapine **IM** 10 mg inj. IM ONE (14:54)
[2025-05-13] MEDS ORDERED: POLY119P3 PO (15:22)
--- NOTE | 2025-05-13 15:31 | ELECTROCARDIOGRAPH REPORT ---
[facility] Test Date: 2025-05-13 Test Time: 15:28:46 Pat Name: LAILA HAYS Department: [facility]- Patient ID: [facility]-[id number] Room: Gender: M Granite Installer: : 2000 Requested By: SOFIA VANG Order Number: [id number] Reading MD: Measurements Intervals [place] Rate: 55 P: 18 AK: 154 QRS: 16 QRSD: 91 T: 0 QT: 460 QTc: 440 Interpretive Statements Sinus bradycardia Borderline T abnormalities, inferior leads Please click the below link to view image of tracing.
[2025-05-13] MEDS: haloperidol lactate 5mg/ml inj IM ONE (16:18)
[2025-05-13] MEDS: normal saline 1000ml 1,000 ML IV ONE (16:18)
--- NOTE | 2025-05-13 16:45 | RADIOLOGY REPORT ---
Exam: DI ABDOMEN,SINGLE VIEW(KUB) Indication: Constipation and Abd pain Comparison: None Technique: 2 radiographic views of the abdomen. Findings: Scattered Gas throughout nondilated small and large bowel. No abnormal calcifications. No radiopaque foreign body. Lung bases are clear. Impression: Nonobstructive bowel gas pattern noted.
[2025-05-13 16:56] VITALS: BP 104/66; PULSE 63; RESP 16; TEMP 98; O2SAT 97
== END 2025-05-13 16:57 | disposition home or self-care (01) ==
LOC: ER 12:17
DX: R11.2 Nausea with vomiting, unspecified (principal); R10.84 Generalized abdominal pain; J45.909 Unspecified asthma, uncomplicated; F41.9 Anxiety disorder, unspecified; F10.10 Alcohol abuse, uncomplicated; F12.90 Cannabis use, unspecified, uncomplicated; Z88.0 Allergy status to penicillin; Y90.9 Presence of alcohol in blood, level not specified
CPT/HCPCS: 36415; 74018; 80053; 81003; 83690; 85025; 93005; 96361; 96372; 96374; 99285; J1630; J1885; J3490; J7030

== ENCOUNTER 2025-06-17 12:02 | Emergency (ER) | payer MEDICAID ==
[~2025-06-17] VITALS: Ht 167.6 cm; Wt 80.8 kg
[~2025-06-17 12:02] MED LIST changes: +POLY119P3 PO; -PROC25SU31 RC
--- NOTE | 2025-06-17 12:10 | Physician Documentation ---
History of Present Illness ~ Stated Complaint: SUBSTANCE REACTION Time Seen by MD: 13:03 Primary Medical Doctor: Nelson Colin In [facility] 25-year-old male with previous visits to this emergency department for same symptoms presents to the ER for nausea, vomiting. He reports that he has been told in the past that he has cannabinoid induced hyperemesis. Medication Reconciliation Allergies: Coded Allergies: Penicillins (Verified Allergy, Unknown, 02/09/25) Scheduled Albuterol Sulfate (Proventil Hfa), 2 PUFFS INH Q4H Diphenhydramine Hcl (Benadryl), 25 MG PO Q6H Polyethylene Glycol 3350 (Clearlax), 17 GM PO DAILY Promethazine HCl (Promethazine HCl), 1 SUPP RC Q6H Risperidone (Risperidone), 0.5 MG PO BID, (Reported) Scheduled PRN Metoclopramide HCl (Reglan), 1 TAB PO Q6H PRN for nausea/vomiting ONDANSETRON ODT 4mg tablet (Ondansetron Odt), 1 TAB PO Q6H PRN PRN for nausea/vomiting ONDANSETRON ODT 4mg tablet (Ondansetron Odt), 1 TAB PO Q6H PRN PRN for nausea/vomiting ONDANSETRON ODT 4mg tablet (Ondansetron Odt), 1 TAB PO Q6H PRN PRN for nausea/vomiting Ondansetron 8mg ODT (Ondansetron Odt), 1 TAB PO TID PRN for nausea/vomiting Promethazine Hcl Supp.* (Promethegan Supp.*), 12.5 MG RC Q8H PRN for nausea/vomiting Miscellaneous Medications [Focalin xr], (Reported) Past Medical History Past Medical History: Asthma, Bronchitis, *GI/HEPATOBILIARY*, Anxiety, Panic Disorder Past Surgical History: orthopedic surgeries Alcohol Use: Abuse Drug Use: marijuana Lives with: Mother Lives In: Home Review of Systems ROS As stated above in the HPI, otherwise all systems are reviewed and negative. Physical Exam Physical Exam General: Alert, actively retching on exam. Neck: Full range of motion. Respiratory: Lungs clear, no respiratory distress. Chest: No accessory muscle use. Cardiovascular: Regular rate and rhythm, no murmurs. Gastrointestinal: Soft, diffusely tender, nondistended. Bowels sounds present. Extremities: Normal range of motion, no deformity. Neurologic: Oriented x4. Psychiatric: Normal mood and affect. Skin: Normal color, warm and dry. No edema, no ecchymosis. Progress Results/Orders Results/Orders Completed Orders - YAEL MOSQUERA NP Olanzapine Im (Zyprexa I.M. Im On (06/17/25 12:10) Ondansetron Disint. Tablet (Zofran Odt T (06/17/25 12:10) Diphenhydramine Capsule (Benadryl Capsul (06/17/25 12:20) Lorazepam Tablet (Ativan Tablet) (06/17/25 13:05) Normal Saline 1000ml (0.9% Sodium Chlori (06/17/25 13:45) Olanzapine Im (Zyprexa I.M. Im On (06/17/25 13:45) Ondansetron Inj. (Zofran 4mg/2ml Vial) (06/17/25 13:45) Cbc/Diff (06/17/25 13:43) CMP (06/17/25 13:43) Lipase (06/17/25 13:43) Medications Received in ER Medications (Trade) Dose Ordered Sig/Gissel Route PRN Reason Start Time Stop Time Status Last Admin Dose Admin (ZyPREXA I.M. IM ONLY) 5 mg ONCE ONCE IM 06/17/25 12:10 06/17/25 12:13 DC 06/17/25 12:32 5 MG (Zofran ODT tablet) 4 mg ONCE ONCE PO 06/17/25 12:10 06/17/25 12:13 DC 06/17/25 12:29 4 MG (Benadryl capsule) 25 mg ONCE ONCE PO 06/17/25 12:20 06/17/25 12:21 DC 06/17/25 12:29 25 MG (Ativan tablet) 1 mg ONCE ONCE PO 06/17/25 13:05 06/17/25 13:06 DC 06/17/25 13:17 1 MG Sodium Chloride 1,000 ml @ 1,000 mls/hr ONCE ONCE IV 06/17/25 13:45 06/17/25 14:44 DC 06/17/25 13:54 1,000 MLS/HR (ZyPREXA I.M. IM ONLY) 2.5 mg ONCE ONCE IM 06/17/25 13:45 06/17/25 13:50 DC 06/17/25 13:54 2.5 MG (Zofran 4mg/2ml vial) 4 mg ONCE ONCE IV 06/17/25 13:45 06/17/25 13:50 DC 06/17/25 13:54 4 MG Vital Signs 06/17/25 06/17/25 06/17/25 06/17/25 12:09 13:24 13:24 14:31 Pulse 65 69 56 Resp 18 22 16 B/P (MAP) 130/84 126/71 (89) 112/59 (76) Pulse Ox 100 100 96 O2 Flow Rate 0 0 0 06/17/25 15:32 Pulse 66 Resp 12 B/P (MAP) 118/68 Pulse Ox 99 Laboratory Tests Test 06/17/25 13:51 White Blood Count 19.9 H Red Blood Count 5.38 Hemoglobin 15.9 Hematocrit 46.9 Mean Corpuscular Volume 87.2 Mean Corpuscular Hemoglobin 29.6 Mean Corpuscular Hemoglobin Concent 33.9 Red Cell Distribution Width 13.7 Platelet Count 315 Mean Platelet Volume 8.3 Neutrophils (%) (Auto) 87.0 H Lymphocytes (%) (Auto) 7.1 L Monocytes (%) (Auto) 5.3 Eosinophils (%) (Auto) 0.2 Basophils (%) (Auto) 0.4 Neutrophils # (Auto) 17.3 H Lymphocytes # (Auto) 1.4 Monocytes # (Auto) 1.1 H Eosinophils # (Auto) 0.0 Basophils # (Auto) 0.1 CBC Comment Sodium Level 141 Potassium Level 3.7 Chloride Level 104 Carbon Dioxide Level 24.5 Anion Gap 13 Blood Urea Nitrogen 19 H Creatinine 0.69 Estimated GFR/1.73 m2 > 90 BUN/Creatinine Ratio 27.5 H Glucose Level 159 H Calcium Level 10.2 H Total Bilirubin 0.8 Aspartate Amino Transf (AST/SGOT) 18 Alanine Aminotransferase (ALT/SGPT) 36 Alkaline Phosphatase 140 H Total Protein 8.7 H Albumin 5.0 Globulin 3.7 Albumin/Globulin Ratio 1.4 Lipase 20 Chemistry Comments Medical Decision Making Additional Comments This is a 25-year-old male with a history of cannabinoid induced hyperemesis syndrome. He was treated in the emergency department for nausea to good effect. He was hydrated. He was then considered appropriate for discharge. He is instructed not to utilize anymore cannabis. Further, he is instructed to follow up with his primary care provider. He reports he has an appointment tomorrow. Return if worse. Departure Time of Disposition: 15:17 Disposition: 01 HOME / SELF CARE / HOMELESS Impression: Primary Impression: Cannabinoid hyperemesis syndrome Condition: Stable Discharge Instructions: Nausea and Vomiting, Adult Additional Instructions: No more cannabis. Use the prescribed nausea medications if this occurs again. See your primary care within a week and ask for recheck of your blood counts as your white blood cell count was elevated today. This is likely just due to the persistent nature of your vomiting. Keep your appt tomorrow. Return if worse. Referrals: NO PRIMARY CARE PROVIDER (PCP) Prescriptions Ondansetron 8mg ODT (Ondansetron Odt) 8 Mg Tab.rapdis 1 TAB PO TID PRN for nausea/vomiting, #10 TAB Prov: YAEL MOSQUERA NP 06/17/25 Promethazine HCl (Promethazine HCl) 12.5 Mg Supp.rect 1 SUPP RC Q6H for nausea for 4 Days, #24 SUPP 0 Refills Prov: YAEL MOSQUERA NP 06/17/25 Education Educated: Patient, Family Educated regarding: diagnosis, treatment, prognosis, need for follow up Signature Scribe Signature: x Attestation: The note accurately reflects work and decisions made by me.Yael Ceballos NP 06/17/25 15:51 YAEL MOSQUERA NP Jun 17, 2025 12:10
[2025-06-17] MEDS: ondansetron 4mg rapidly disintigrating tab PO ONE (12:29)
[2025-06-17] MEDS: OLANZapine **IM** 10 mg inj. IM ONE ×2 (12:32→13:54)
[2025-06-17] MEDS: normal saline 1000ml 1,000 ML IV ONE (13:54)
[2025-06-17] MEDS: ondansetron/PF 4mg/2ml inj IV ONE (13:54)
[2025-06-17 14:12] LABS: MEAN PLATELET VOLUME 8.3 FL (7.4-10.4); RED CELL DISTRIBUTION WIDTH 13.7 % (11.5-14.5)
[2025-06-17 14:28] LABS: CREATININE 0.69 MG/DL (0.60-1.10); TOTAL CARBON DIOXIDE 24.5 MMOL/L (24-32); eCRCL 146 ML/MIN; eGFR > 90 ML/MIN
[2025-06-17] MEDS ORDERED: ONDA-245 PO (15:19)
[2025-06-17] MEDS ORDERED: PROM12.574 RC (15:19)
[2025-06-17 15:32] VITALS: BP 118/68; PULSE 66; RESP 12; O2SAT 99
== END 2025-06-17 15:25 | disposition home or self-care (01) ==
LOC: ER 12:04
DX: F12.90 Cannabis use, unspecified, uncomplicated (principal); R11.10 Vomiting, unspecified; F10.10 Alcohol abuse, uncomplicated; F41.9 Anxiety disorder, unspecified; F41.0 Panic disorder [episodic paroxysmal anxiety]; J45.909 Unspecified asthma, uncomplicated; Z88.0 Allergy status to penicillin; Z79.899 Other long term (current) drug therapy; Y90.9 Presence of alcohol in blood, level not specified
CPT/HCPCS: 80053; 83690; 85025; 96361; 96372; 96374; 99284; J2405; J3490; J7030; Q0163

== ENCOUNTER 2025-06-20 17:46 | Inpatient (IN) | payer MEDICAID ==
[~2025-06-20] VITALS: Ht 167.6 cm; Wt 79.2 kg
[~2025-06-20 17:46] MED LIST changes: +ONDA-245 PO; +PROM12.574 RC
[2025-06-20 17:56] VITALS: TEMP 98.2
[2025-06-20 18:32] LABS: MEAN PLATELET VOLUME 8.2 FL (7.4-10.4); RED CELL DISTRIBUTION WIDTH 13.4 % (11.5-14.5)
[2025-06-20 18:37] LABS: CREATININE 1.14 MG/DL (0.60-1.10); TOTAL CARBON DIOXIDE 23.7 MMOL/L (24-32); eCRCL 89 ML/MIN; eGFR 78 ML/MIN
[2025-06-20] MEDS: ondansetron/PF 4mg/2ml inj IV ONE (19:16)
[2025-06-20] MEDS: normal saline 1000ML IV soln IVB ONE (19:16)
[2025-06-20] MEDS ORDERED: iohexol 300mg/ml 100ml inj. ONE (19:23)
--- NOTE | 2025-06-20 19:31 | RADIOLOGY REPORT ---
CHEST RADIOGRAPH REASON FOR EXAM: intractable vomit, air in mediastinum COMPARISON: CT CHEST ABDOMEN PELVIS on DOS: 12/04/21 TECHNIQUE: One view of the chest is provided FINDINGS: The cardiomediastinal silhouette is within normal limits for technique. There is no focal a irspace disease. There is no significant pleural effusion. There is no pneumothorax. There is no pneu momediastinum. No acute bony abnormality is identified. IMPRESSION: No radiographic evidence of acute cardiopulmonary process. No pneumomediastinum or pneumothorax.
[2025-06-20 19:33] LABS: ETHANOL < 10 MG/DL (<10)
[2025-06-20] MEDS: morphine 4 MG/ML inj SYRINge IV ONE (19:39)
[2025-06-20 19:59] LABS: APTT 26 SECONDS (22-32); INR 1.1 INR
[2025-06-20] MEDS: haloperidol lactate 5mg/ml inj IVH ONE (20:23)
[2025-06-20] MEDS: magnesium sulf-water 2g/50mL 50 ML IV ONE (20:24)
[2025-06-20] MEDS: POTASSIUM BICARB 20meq eff tab 20 MEQ TABLET.EFF PO ONE (20:31)
[2025-06-20] MEDS: potassium CL 10mEq/100ml bag 100 ML IV SCH (21:34)
--- NOTE | 2025-06-20 21:36 | RADIOLOGY REPORT ---
Exam: CT CT ABDOMEN PELVIS W/ IV CONTRAST History: abd pain Comparison Study: DI ABDOMEN,SINGLE VIEW(KUB) on DOS: 05/13/25, CT CHEST ABDOMEN PELVIS on DOS: 2 TECHNIQUE: A digital project finance analyst image was obtained. During the uneventful, intravenous administration of c ontrast material, multislice data acquisition was obtained through the abdomen and pelvis. The data s et was subsequently reconstructed into multiplanar reformats. RADIATION DOSE: CTDI vol 19.34 mGy. DLP 1002.55 mGy.cm Findings: Liver: Unremarkable. Spleen: Unremarkable. Pancreas: Unremarkable. Gallbladder: Unremarkable. Adrenals: Unremarkable Kidneys: Unremarkable. Pelvic Viscera: Unremarkable. Vasculature: Unremarkable. Retroperitoneum: Unremarkable. Bowel: The appendix is normal. There are fluid-filled and mildly dilated loops of small bowel within the left upper quadrant, with gradual transition to decompressed distal loops. Musculoskeletal: Unremarkable. Soft tissues: Unremarkable Lungs: The lung bases are clear. Impression: 1. Fluid-filled and mildly dilated loops of small bowel within the left upper quadrant, which may be referable to an enteritis in the appropriate clinical setting. A developing or partial small-bowel ob struction cannot be entirely excluded. Further clinical correlation is suggested.
--- NOTE | 2025-06-20 22:29 | Physician Documentation ---
History of Present Illness Chief Complaint: Vomiting Stated Complaint: VOMITTING Time Seen by MD: 19:00 Primary Medical Doctor: Nelson Colin In Mode of Arrival: POV HPI This is a 25-year-old gentleman with a innumerable visits for cannabinoid hyperemesis, presents for evaluation of three days of nausea, vomiting, abdominal pain. No obvious trigger provocation. No palliating or aggravating factors. Decrease his marijuana intake with a continues to experience symptoms. Denies alcohol use or tobacco use. No chest pain or shortness a breath. Medication Reconciliation Allergies: Coded Allergies: Penicillins (Verified Allergy, Unknown, 06/20/25) Scheduled Albuterol Sulfate (Proventil Hfa), 2 PUFFS INH Q4H Diphenhydramine Hcl (Benadryl), 25 MG PO Q6H Polyethylene Glycol 3350 (Clearlax), 17 GM PO DAILY Promethazine HCl (Promethazine HCl), 1 SUPP RC Q6H Risperidone (Risperidone), 0.5 MG PO BID, (Reported) Scheduled PRN Metoclopramide HCl (Reglan), 1 TAB PO Q6H PRN for nausea/vomiting ONDANSETRON ODT 4mg tablet (Ondansetron Odt), 1 TAB PO Q6H PRN PRN for nausea/vomiting ONDANSETRON ODT 4mg tablet (Ondansetron Odt), 1 TAB PO Q6H PRN PRN for nausea/vomiting ONDANSETRON ODT 4mg tablet (Ondansetron Odt), 1 TAB PO Q6H PRN PRN for nausea/vomiting Ondansetron 8mg ODT (Ondansetron Odt), 1 TAB PO TID PRN for nausea/vomiting Promethazine Hcl Supp.* (Promethegan Supp.*), 12.5 MG RC Q8H PRN for nausea/vomiting Miscellaneous Medications [Focalin xr], (Reported) Past Medical History Past Medical History: Asthma, Bronchitis, *GI/HEPATOBILIARY*, Anxiety, Panic Disorder Past Surgical History: orthopedic surgeries Alcohol Use: Abuse Drug Use: marijuana Lives with: Mother Lives In: Home Review of Systems ROS 10 point review of systems was performed and unless noted above in HPI is negative for acute process/complaint. Physical Exam Vital Signs: Temperature: 98.2, Source: Temporal, Heart Rate: 61, Respiratory Rate: 14, BP: 131/74, Pulse Oximetry: 99, Weight: 79.200 Oxygen Flow Rate: 0 Physical Exam GENERAL: Awake, alert, oriented, GCS 15, no apparent distress, non-toxic appearing, answers questions, follows commands appropriately. Examined in bed 11. HEENT: Atraumatic, normocephalic, pupils equal, extraocular muscles intact, sclerae anicteric, mucus membranes moist, oropharynx is clear, no stridor. NECK: supple, full active range of motion, trachea midline, no thyromegaly, no lymphadenopathy, no JVD. CARDIOVASCULAR: regular rate/rhythm, no murmurs/gallops/rubs, Pulses are 2+ in all extremities and symmetric. Capillary refill less than 2 seconds. PULMONARY: Nonlabored, good air movement ,no respiratory distress, speaking in full sentences, clear to auscultation bilaterally, no wheezing, no ronchi, no rales, no accessory muscle use. GASTROINTESTINAL: Soft, diffusely tender, non-distended, normal active bowel sounds, no organomegaly, no pulsatile masses, no CVA tenderness. NEUROLOGIC: Lucid with normal mental status. Normal facial symmetry. Moves all extremities symmetrically and with purpose. No truncal ataxia. Speech is fluid without evidence of dysarthria or aphasia, no focal deficits appreciated. MUSCULOSKELETAL: There is full range of motion of all extremities. There is no joint pain or joint swelling or joint erythema. There is no muscle pain or tenderness or swelling. EXTREMITIES: warm, well-perfused, no cyanosis, no clubbing, no edema, no acute deformities. Skin: warm, dry, no rashes or lesions, no jaundice, no petechiae orpurpura. No ecchymosis. PSYCHIATRIC: Normal affect, normal insight, normal concentration. Focused exam: [] No guarding or rebound Progress Results/Orders Results/Orders Orders - VIVIANA SANDOVAL DO Electrocardiogram (06/20/25 19:00) Chest,Single View (06/20/25 19:00) Monitor (06/20/25 19:00) Saline Lock (06/20/25 19:00) Ct Abdomen Pelvis (06/20/25 19:00) Drug Screen, Urine (06/20/25 19:00) Completed Orders - VIVIANA SANDOVAL DO Ondansetron Inj. (Zofran 4mg/2ml Vial) (06/20/25 19:00) ESR (06/20/25 19:00) Pt Inr (06/20/25 19:00) PTT (06/20/25 19:00) Chest,Single View (06/20/25 19:00) Normal Saline 1000ml (0.9% Sodium Chlori (06/20/25 19:00) Ct Abdomen Pelvis (06/20/25 19:00) Hs Troponin I W Calculations (06/20/25 19:00) Iohexol 300mg/Ml 100ml Inj. (Omnipaque-3 (06/20/25 19:23) Morphine 4mg/Ml Inj. (Morphine Inj.) (06/20/25 19:35) Potassium Bicarb 20meq Eff Tab (Effer-K (06/20/25 19:45) Potassium Cl 10meq/100ml Bag (Potassium (06/20/25 19:45) Magnesium Sulf-Water 2g/50ml (Magnesium (06/20/25 19:45) Haloperidol Lact. (Haldol) (06/20/25 19:45) Lorazepam Inj (Ativan Inj) (06/20/25 21:41) Medications Received in ER Medications (Trade) Dose Ordered Sig/Gissel Route PRN Reason Start Time Stop Time Status Last Admin Dose Admin (Zofran 4mg/2ml vial) 8 mg ONCE ONCE IV 06/20/25 19:00 06/20/25 19:04 DC 06/20/25 19:16 8 MG (0.9% sodium chloride (NS) 1000ml IV soln) 1,000 ml ONCE ONCE IVB 06/20/25 19:00 06/20/25 19:04 DC 06/20/25 19:16 1,000 ML (Protonix 40mg IV) 40 mg NOW ONCE IV 06/20/25 19:35 06/20/25 19:36 DC 06/20/25 19:39 40 MG (morphine inj.) 4 mg ONCE ONCE IV 06/20/25 19:35 06/20/25 19:36 DC 06/20/25 19:39 4 MG (Effer-K 20 Meq Tablet Eff) 60 meq ONCE ONCE PO 06/20/25 19:45 06/20/25 20:05 DC 06/20/25 20:31 60 MEQ Potassium Chloride 100 ml @ 100 mls/hr Q1H IV 06/20/25 19:45 06/20/25 21:44 DC 06/20/25 21:34 100 MLS/HR Magnesium Sulfate 50 ml @ 100 mls/hr ONCE ONCE IV 06/20/25 19:45 06/20/25 20:14 DC 06/20/25 20:24 100 MLS/HR (Haldol) 5 mg ONCE ONCE IVH 06/20/25 19:45 06/20/25 20:04 DC 06/20/25 20:23 5 MG (Ativan inj) 1 mg ONCE STAT IV 06/20/25 21:41 06/20/25 21:42 DC 06/20/25 21:47 1 MG Vital Signs 06/20/25 06/20/25 06/20/25 06/20/25 17:56 19:39 20:04 20:04 Temp 98.2 Pulse 97 65 Resp 16 18 18 12 B/P (MAP) 114/71 117/73 (88) Pulse Ox 98 94 O2 Flow Rate 0 06/20/25 21:54 Pulse 61 Resp 14 B/P (MAP) 131/74 (93) Pulse Ox 99 Laboratory Tests Test 06/20/25 18:07 06/20/25 19:26 White Blood Count 16.5 H Red Blood Count 5.86 Hemoglobin 17.6 Hematocrit 49.7 Mean Corpuscular Volume 84.9 Mean Corpuscular Hemoglobin 30.0 Mean Corpuscular Hemoglobin Concent 35.4 Red Cell Distribution Width 13.4 Platelet Count 311 Mean Platelet Volume 8.2 Neutrophils (%) (Auto) 84.8 H Lymphocytes (%) (Auto) 9.6 L Monocytes (%) (Auto) 4.9 Eosinophils (%) (Auto) 0.3 Basophils (%) (Auto) 0.4 Neutrophils # (Auto) 14.0 H Lymphocytes # (Auto) 1.6 Monocytes # (Auto) 0.8 Eosinophils # (Auto) 0.1 Basophils # (Auto) 0.1 CBC Comment Erythrocyte Sedimentation Rate 2 Sodium Level 134 L Potassium Level 2.9 *L Chloride Level 95 L Carbon Dioxide Level 23.7 L Anion Gap 15 Blood Urea Nitrogen 16 Creatinine 1.14 H Estimated GFR/1.73 m2 78 BUN/Creatinine Ratio 14.0 Glucose Level 162 H Calcium Level 10.3 H Total Bilirubin 1.3 H Aspartate Amino Transf (AST/SGOT) 20 Alanine Aminotransferase (ALT/SGPT) 46 Alkaline Phosphatase 153 H Troponin I High Sensitivity 14 C-Reactive Protein 0.34 Total Protein 9.4 H Albumin 5.3 H Globulin 4.1 Albumin/Globulin Ratio 1.3 Lipase 39 Chemistry Comments Ethyl Alcohol Level < 10 Prothrombin Time 11.4 INR International Normalized Ratio 1.1 Activated Partial Thromboplast Time 26 Coagulation Comments Medical Decision Making Findings Facility Status: ED Holds, [facility] process The plan was discussed with the patient, who demonstrates clear understanding of the plan and is in agreement with the plan unless otherwise noted in the chart. All questions have been answered, all concerns were addressed unless otherwise documented. I was available throughout their ED stay for frequent reassessment and questions. Differential Diagnoses (considered and possible or likely): [Differential diagnosis considered includes acute appendicitis, acute cholecystitis, pancreatitis, gastritis, PUD, diverticulitis, mesenteric ischemia, abdominal aortic aneurysm, bowel obstruction, enteritis, colitis, fecal impaction, volvulus, IBS, inflammatory bowel disease, specific food intolerance, perit onitis, perforated viscous, malignancy, UTI, abscess, and abdominal pain NOS. History, physical exam, and workup exclude many of the more serious causes listed above. ] ??Differential Diagnoses (considered and unlikely, not requiring evaluation currently): [See above] MDM Data Please see [facility] for the following: Independent Historians and external Records Review. Historian: [Patient] Independent Historians: ?[Significant other] Medication Management: [Reviewed medication list] Social History and determinants: [Reviewed] Please see the body of the note for the following: Any independent interpretations of ECG, imaging studies. All vitals signs/haemodynamics, ordered tests were independently reviewed and interpreted by myself. Nursing triage complaint and vitals reviewed, additional nursing notes were r eviewed as available and I agree unless otherwise noted or documented in contradiction in the chart Vital Signs: Independently reviewed Labs: Independently interpreted Imaging: Independently interpreted Old Medical Records: Independently reviewed, see HPI for relevant summary and information Pulse Oximetry: [97%] interpreted as [normal on room air] by me [Guidance Secretary: [Regular Rate, Regular rhythm, no ectopy, NSR] reviewed and interpreted by me] Additionally notably showing: [Hemodynamics reviewed. The patient is not febrile, not tachycardic, no evidence of hypotension respiratory distress. Laboratory studies show mild leukocytosis of 16.5, reactive versus infectious. 85% neutrophils. Coagulation panel is unremarkable. Chemistry shows potassium of 2.9. Slightly elevated creatinine, slightly elevated bilirubin consistent with dehydration. Lipase is normal. Toxicology shows negative ethanol. Chest x-ray shows no pneumomediastinum. Abdomen and pelvis CT was obtained dilated bowel loops concerning for enteritis versus partial small bowel obstruction.] Tests considered but not ordered include: [Ultrasound has been considerably but does not appear to be necessary in the setting] Social Determinants of Health Impact: Patient was evaluated in [facility], [facility] [place] to healthcare due to below par ratio of patient to medical providers. [] Comorbid Conditions Impacting Present Evaluation and Care/Treatment: [History of cannabinoid hyperemesis] Management Discussions with other Healthcare Providers: [] Treatment and Disposition Medication Management (Given or considered): [Fluid resuscitation and nausea palliation as well as pain palliation.]. See EMR for details Consideration for Hospitalization/Escalation/Deescalation of Care: Admission for observation has been considered, and the appears to be necessary given his a int ractable nausea vomiting, persistent abdominal pain no concern for partial bowel obstruction. ?ED Course:?[The patient has been an episode of anxiety/panic attack and was given Ativan.] Patient is constipated and not passing gas. This would be consistent with a early/partial bowel obstruction. He will require admission. ?Shared decision making:?[] Code status:?FULL Please see the full Electronic Medical Record for full details of nursing documentation, medications list, other records of complete past medical history and conditions, vital signs, laboratory studies, and any radiologic study interpretations by radiologists. Portions of this note were completed using [employer] dictation software and as a result there may exist minor errors in spelling. I have reviewed elements of past family and social history and agree as included in note. Departure Disposition: 09 ADMITTED INPATIENT Impression: Primary Impression: Nausea and vomiting Additional Impression: Partial bowel obstruction Condition: Stable Referrals: NO PRIMARY CARE PROVIDER (PCP) Signature Scribe Signature: No scribe Attestation: This note accurately reflects clinical decisions, work performed by myself, N DO JAIME Palumbo NICHOLAS M DO Jun 20, 2025 22:29
[2025-06-20] MEDS ORDERED: metoclopramide 5 mg/ml inj IV PRN (23:15)
[2025-06-20] MEDS ORDERED: mag hydrox/Alum hydrox/simeth 30ml oral suspension PO PRN (23:15)
[2025-06-20] MEDS ORDERED: magnesium hydroxide 30ml (MOM) UD suspension PO PRN (23:15)
[2025-06-20] MEDS ORDERED: magnesium sulf-water 2g/50mL 50 ML IV PRN (23:15)
[2025-06-20] MEDS ORDERED: ringers solution, lacted 1,000 ML IV SCH (23:15)
[2025-06-20] MEDS ORDERED: potassium Cl 20 mEq SR tablet PO PRN ×2 (23:15)
[2025-06-20] MEDS ORDERED: potassium Cl 40MEQ/1/2NS 520ml 520 ML IV PRN (23:15)
[2025-06-20] MEDS ORDERED: magnesium Cl slow-release 64mg tablet PO PRN (23:15)
[2025-06-20] MEDS ORDERED: magnesium sulf-water 4G/100mL 100 ML IV PRN (23:15)
[2025-06-20 23:25] LABS: LEUKOCYTE ESTERASE ,URINE NEGATIVE (Neg); NITRITES, URINE NEGATIVE (Neg); OCCULT BLOOD,URINE NEGATIVE (Neg)
[2025-06-20 23:31] LABS: UA COLLECTION TYPE CLN CATCH MIDSTREAM
[2025-06-20] MEDS ORDERED: DULO60CA65 PO (23:33)
[2025-06-20] MEDS ORDERED: QUET25TA36 PO (23:33)
[2025-06-20] MEDS ORDERED: BUSP10TA3 PO (23:33)
--- NOTE | 2025-06-20 23:47 | HISTORY AND PHYSICAL-Residence ---
History & Physical Providers to CC Resident Creating Document: [facility] RES ~ History of Present Illness Primary Medical Doctor: Nelson Alvares Reason for Admit\Complaint: Small bowel obstruction; Acute viral enteritis; History of Present Illness This is a 25-year-old male patient with past medical history of cannabinoid induced hyperemesis and asthma, presented to the emergency department due to intractable vomiting for the last three days, associated with constipation and reduced passage of gas. Patient has multiple ED encounters for cannabinoid induced hyperemesis but they usually are shorter in duration and not associated with constipation/reduced passage of gas. He complains of nonspecific abdominal pain, no fever or any other associated symptoms reported. Allergies: Coded Allergies: Penicillins (Verified Allergy, Unknown, 06/20/25) Home Medications Home Medications Active Proventil Hfa (Albuterol Sulfate) 6.7 Gm Hfa.aer.ad 2 Puffs INH Q4H Reported Duloxetine HCl 60 Mg Capsule.dr 1 Cap PO DAILY Quetiapine Fumarate 25 Mg Tablet 1 Tab PO HS Buspirone HCl 10 Mg Tablet 1 Tab PO BID PRN [Focalin xr] Risperidone 0.5 Mg Tablet 0.5 Mg PO BID Past Medical History Past Medical History Asthma Cannabinoid induced hyperemesis. Anxiety Past Social History Smoking: Cigarettes (Smokes 5 cigarettes every other day) Alcohol Use: Abuse Drug Use: Marijuana Lives with: Mother Lives In: Home ROS Constitutional: Reports: weakness Eyes: Reports: no symptoms reported ENT: Reports: no symptoms reported Respiratory: Reports: no symptoms reported Cardiovascular: Reports: no symptoms reported Gastrointestinal: Reports: abdominal pain, nausea, constipated Genitourinary: Reports: no symptoms reported Male Genitalia: Reports: no symptoms reported Neurological: Reports: no symptoms reported Musculoskeletal: Reports: no symptoms reported Integumentary: Reports: no symptoms reported Allergic/Immunologic: Reports: no symptoms reported Hematologic/Lymphatic: Reports: no symptoms reported Endocrine: Reports: no symptoms reported Psychiatric: Reports: anxiety Exam Vitals: Vital Signs Date Time Temp Pulse Resp B/P (MAP) Pulse Ox O2 Delivery O2 Flow Rate FiO2 06/20/25 22:51 87 18 107/53 (71) 96 06/20/25 17:56 98.2 0 General: General: Awake and Alert, no acute distress. HEENT: Conjunctiva pink, Sclera clear, Mucus Membranes dry Neck: Supple without masses and tenderness. Resp: Unlabored. Lungs clear to auscultation bilaterally. Heart: Regular Rate and rhythm, normal S1 and S2 without murmur, rub or gallop. Abdomen: Soft, tympanic, mildly tender in epigastric region, decreased abdominal sounds, no organomegaly, no guarding or rebound Extremities: No cyanosis,clubbing or edema. Skin: Warm and Dry. Diagnostic Data Last Recorded Lab Results: 06/20/[id number] Diagnostic Data: Laboratory Tests Test 06/20/25 19:26 Prothrombin Time 11.4 SECONDS (9.0-12.0) INR International Normalized Ratio 1.1 INR Activated Partial Thromboplast Time 26 SECONDS (22-32) Coagulation Comments Counseling Services Smoking & Tobacco Cessation: 3-10 Minutes Advance Care Planning Advanced Care plannin - 30 Minutes (Patient wishes to be full code) Additional Plan Assessment This is a 25-year-old male patient with past medical history of cannabinoid induced hyperemesis, admitted for signs of small-bowel obstruction and acute viral enteritis. Patient is initially management with IV hydration, symptomatic treatment, NG tube and bowel rest. No signs of complications presented at admission. Plan Small-bowel obstruction - no signs of complication Possible associated with acute viral enteritis Abdomen CT with IV contrast: Fluid-filled and mildly dilated loops of small bowel within the left upper quadrant, which may be referable to an enteritis in the appropriate clinical setting. A developing or partial small-bowel obstruction cannot be entirely excluded. C-reactive protein 0.34, ESR 2, WBC 16.5 1000 mL bolus of NS IV hydration with lactated Ringer at 125mL/hr Zofran 4 mg q.6 hours scheduled Metoclopramide 10 mg p.r.n. Ordered NPO Ordered NG tube Consult surgeon if conservative measures fail Hypokalemia - secondary to vomiting Potassium 2.9 Replacement per protocol Acute kidney injury, most likely due to prerenal nephropathy Mildly elevated creatinine BUN 16, creatinine 1.14 (0.69 on 06/17/2025) Continue IV hydration Asthma Continue albuterol p.r.n. Code Status: Full code DVT prophylaxis: Heparin Analgesia/sedation: Morphine Line/tube: PIV/NG tube GI prophylaxis: Pantoprazole Nutrition: NPO Physical therapy: Not ordered, patient ambulates PATIENT LEFT AMA BEFORE BEING TRANSFERRED TO THE FLOOR Addendum he left AMA before I see him. Date of Service: Jun 20, 2025 Billing Provider: LAURENCE HOLLIS MD, LUCAS, RES Jun 20, 2025 23:47 LAURENCE HOLLIS MD Jun 21, 2025 02:30
[2025-06-20 23:51] LABS: URINE AMPHETAMINE SCREEN NEGATIVE (Neg); URINE BARBITUATE SCREEN NEGATIVE (Neg); URINE BENZODIAZEPINES SCREEN NEGATIVE (Neg); URINE CANNABINOID SCREEN POSITIVE (Neg); URINE COCAINE SCREEN NEGATIVE (Neg); URINE METHADONE SCREEN NEGATIVE (Neg); URINE OPIATE SCREEN POSITIVE (Neg); URINE PHENCYCLIDINE SCREEN NEGATIVE (Neg)
[2025-06-21] VITALS: BP 147/92; PULSE 85; RESP 20; O2SAT 95
[2025-06-21] MEDS ORDERED: ondansetron/PF 4mg/2ml inj IV SCH (02:00)
--- NOTE | 2025-06-21 02:27 | DISCHARGE SUMMARY-Residence ---
Discharge Summary Providers to CC Resident Creating Document: [facility] RES ~ Discharge Summary Admission Diagnosis: Suspected small bowel obstruction Hospital Course DATE OF ADMISSION: 06/20/2025 DATE OF DISCHARGE: 06/21/2025 Discharge Diagnosis\Comment: Small-bowel obstruction Operations\Procedures: None Consultants: None Complications: None Condition on DC: Stable Discharge Summary: Patient was admitted for signs of small-bowel obstruction and acute viral enteritis. Patient was initially management with IV hydration, symptomatic treatment, NG tube and bowel rest. No signs of complications presented at admission. The patient left AMA in the emergency department before being transferred to the floor. *Problems/Diagnosis: (1) Partial bowel obstruction Status: Acute (2) Viral gastroenteritis Status: Acute (3) Vomiting Status: Acute (4) ARF (acute renal failure) Status: Acute Total Time Spent on D/C: Up to 30 Minutes Counseling Services Smoking & Tobacco Cessation: 3-10 Minutes Date of Service: Jun 21, 2025 Billing Provider: LAURENCE HOLLIS MD, LUCAS, RES Jun 21, 2025 02:27
--- NOTE | 2025-06-21 06:17 | ELECTROCARDIOGRAPH REPORT ---
[facility] Test Date: 2025-06-20 Test Time: 19:36:12 Pat Name: LAILA HAYS Department: EMERGENCY ROOM Patient ID: [facility]-[id number] Room: ED 11 1 Gender: M [employer] Supervisor: JUSTIN : 2000 Requested By: VIVIANA SANDOVAL Order Number: [id number] Reading MD: Dr. Domenic Amaral Measurements Intervals [place] Rate: 65 P: 257 MA: 112 QRS: 101 QRSD: 89 T: 5 QT: 425 QTc: 442 Interpretive Statements Pacemaker spikes or artifacts Ectopic atrial rhythm Borderline short MA interval Borderline right axis deviation Borderline T wave abnormalities Electronically Signed On 06-22-2025 19:28:[address] Domenic Amaral Please click the below link to view image of tracing.
[2025-06-21] MEDS ORDERED: docusate sod 100mg capsule PO SCH (08:00)
[2025-06-21] MEDS ORDERED: K and/or MAG REPLACEMENT MC SCH (08:00)
[2025-06-21] MEDS ORDERED: heparin, porcine 5000 units/ml vial SQ SCH (08:00)
== END 2025-06-21 00:21 | disposition left against medical advice (07) | DRG 247 ==
LOC: ER 17:47 → ED HOLD 22:54
PROVIDERS: ADMIT Internal Medicine Sleep Medicine; ATTEND Internal Medicine Sleep Medicine
DX: K56.600 Partial intestinal obstruction, unspecified as to cause (principal); N17.9 Acute kidney failure, unspecified; A08.39 Other viral enteritis; J45.909 Unspecified asthma, uncomplicated; F41.9 Anxiety disorder, unspecified; Z53.21 Procedure and treatment not carried out due to patient leaving prior to being seen by health care provider; Z88.0 Allergy status to penicillin; Z79.899 Other long term (current) drug therapy
CPT/HCPCS: 36415; 71045; 74177; 80053; 80305; 80320; 81003; 83605; 83690; 84484; 85025; 85610; 85651; 85730; 86140; 87040; 93005; 96365; 96375; 99285; A6449; G0378; J1630; J2060; J2270; J2405; J2470; J3480; J7030; Q9967

== ENCOUNTER 2025-08-16 17:47 | Emergency (ER) | payer MEDICAID ==
[~2025-08-16] VITALS: Ht 175.3 cm; Wt 66.6 kg
[~2025-08-16 17:47] MED LIST changes: +BUSP10TA3 PO; -DIPH25CA83 PO; +DULO60CA65 PO; -METO5TAB85 PO; -ONDA-243 PO; -ONDA-245 PO; -PHE12.5R RC; -POLY119P3 PO; -PROM12.574 RC; +QUET25TA36 PO
[2025-08-16 18:39] VITALS: BP 128/74; PULSE 61; RESP 15; TEMP 97.6; O2SAT 100
--- NOTE | 2025-08-16 18:51 | Physician Documentation ---
History of Present Illness Chief Complaint: Abdominal Pain Stated Complaint: VOMITING Primary Medical Doctor: Nelson Colin In HPI This is a 25-year-old male with a history of cyclic vomiting triggered by cannabis use who presents with nausea, vomiting, and abdominal pain. Patient reports he has concern for bowel obstruction as he has not had a bowel movement in three days. Medication Reconciliation Allergies: Coded Allergies: Penicillins (Verified Allergy, Unknown, 06/20/25) Scheduled Albuterol Sulfate (Proventil Hfa), 2 PUFFS INH Q4H Duloxetine HCl (Duloxetine HCl), 1 CAP PO DAILY, (Reported) Quetiapine Fumarate (Quetiapine Fumarate), 1 TAB PO HS, (Reported) Risperidone (Risperidone), 0.5 MG PO BID, (Reported) Scheduled PRN Buspirone HCl (Buspirone HCl), 1 TAB PO BID PRN for anxiety, (Reported) Miscellaneous Medications [Focalin xr], (Reported) Past Medical History Past Medical History: Asthma, Bronchitis, *GI/HEPATOBILIARY*, Anxiety, Panic Disorder Past Surgical History: orthopedic surgeries Alcohol Use: Abuse Drug Use: marijuana Lives with: Mother Lives In: Home Review of Systems ROS As stated above in the HPI, otherwise all systems are reviewed and negative. Physical Exam Vital Signs: Temperature: 97.6, Source: Temporal, Heart Rate: 61, Respiratory Rate: 15, BP: 128/74, Pulse Oximetry: 100, Weight: 66.600 Physical Exam VITALS: Reviewed and as above. GENERAL: Alert, nontoxic appearing, no apparent distress. RESPIRATORY: No increased work of breathing, no respiratory distress, speaking in full clear sentences Progress Results/Orders Results/Orders Vital Signs 08/16/25 18:39 Temp 97.6 Pulse 61 Resp 15 B/P (MAP) 128/74 Pulse Ox 100 Medical Decision Making Findings MSE performed in triage and patient returned to ED lobby by nursing staff to await available ED room. Patient appears to have eloped from lobby Differential Dx:Considerations: Include: Appendicitis, Bowel obstruction, Cholangitis, Cholelithasis, Constipation, Diverticular disease, Esophageal rupture, Esophagitis, Gastritis/PUD, Gastroenteritis, GI hemorrhage, Inflammatory BD, Ischemic bowel, Other (Cannabis hyperemesis, cyclic vomiting syndrome) Departure Disposition: 07 LEFT AWOL/ELOPED Impression: Primary Impression: Nausea and vomiting Qualified Codes: R11.2 - Nausea with vomiting, unspecified Referrals: NO PRIMARY CARE PROVIDER (PCP) Signature Scribe Signature: No scribe Attestation: The note accurately reflects work and decisions made by me.CHEPE Cox 08/17/25 11:46 SOFIA VANG Aug 16, 2025 18:51
[2025-08-16 19:04] LABS: LEUKOCYTE ESTERASE ,URINE NEGATIVE (Neg); NITRITES, URINE NEGATIVE (Neg); OCCULT BLOOD,URINE NEGATIVE (Neg)
[2025-08-16 19:10] LABS: UA COLLECTION TYPE VOIDED
[2025-08-16 19:12] LABS: AMORPHOUS URATES 2+; SQUAMOUS EPITHELIAL CELL,UR FEW /LPF (FEW)
[2025-08-16 19:25] LABS: MEAN PLATELET VOLUME 8.2 FL (7.4-10.4); RED CELL DISTRIBUTION WIDTH 13.4 % (11.5-14.5)
[2025-08-16 19:37] LABS: CREATININE 0.66 MG/DL (0.60-1.10); TOTAL CARBON DIOXIDE 25.9 MMOL/L (24-32); eCRCL 160 ML/MIN; eGFR > 90 ML/MIN
== END 2025-08-16 20:44 | disposition left against medical advice (07) ==
LOC: ER 17:47
DX: R11.2 Nausea with vomiting, unspecified (principal); R10.9 Unspecified abdominal pain; J45.909 Unspecified asthma, uncomplicated; F41.9 Anxiety disorder, unspecified; F10.10 Alcohol abuse, uncomplicated; F12.90 Cannabis use, unspecified, uncomplicated; Z88.0 Allergy status to penicillin; Y90.9 Presence of alcohol in blood, level not specified
CPT/HCPCS: 36415; 80053; 81001; 83690; 85025; 99283

== ENCOUNTER 2025-08-18 08:05 | Emergency (ER) | payer MEDICAID ==
[~2025-08-18] VITALS: Ht 172.7 cm; Wt 84.1 kg
[2025-08-18 08:11] VITALS: TEMP 98.6
--- NOTE | 2025-08-18 08:36 | Physician Documentation ---
History of Present Illness Chief Complaint: Abdominal Pain w/vomiting Stated Complaint: NAUSEA Time Seen by MD: 08:34 Primary Medical Doctor: Nelson Colin In HPI 25-year-old male history of cannabis hyperemesis, cyclic vomiting presenting for nausea vomiting and abdominal pain. Typical to his prior flare-ups. Denies fevers. Has not had a good bowel movement for a few days. Medication Reconciliation Allergies: Coded Allergies: Penicillins (Verified Allergy, Unknown, 08/18/25) Scheduled Albuterol Sulfate (Proventil Hfa), 2 PUFFS INH Q4H Duloxetine HCl (Duloxetine HCl), 1 CAP PO DAILY, (Reported) Potassium Chloride (Potassium Chloride), 1 TAB PO Q4H Quetiapine Fumarate (Quetiapine Fumarate), 1 TAB PO HS, (Reported) Risperidone (Risperidone), 0.5 MG PO BID, (Reported) Scheduled PRN Buspirone HCl (Buspirone HCl), 1 TAB PO BID PRN for anxiety, (Reported) Miscellaneous Medications [Focalin xr], (Reported) Past Medical History Past Medical History: Asthma, Bronchitis, *GI/HEPATOBILIARY*, Anxiety, Panic Disorder Past Surgical History: orthopedic surgeries Alcohol Use: Abuse Drug Use: marijuana Lives with: Mother Lives In: Home Review of Systems All Other Systems at this time: Reviewed and Negative Cardiovascular: Denies: chest pain Physical Exam Vital Signs: Temperature: 98.6, Source: Temporal, Heart Rate: 82, Respiratory Rate: 18, BP: 121/96, Pulse Oximetry: 98, Weight: 84.090 Oxygen Flow Rate: 0 Physical Exam Groaning, retching no active vomiting Moist mucous membranes Awake alert oriented Lungs clear to auscultation Abdomen soft mild epigastric tenderness no guarding no rebound Skin pink warm dry well-perfused Progress Results/Orders Reviewed/noted all lab results: Yes Results/Orders Vital Signs 08/18/25 08:11 Temp 98.6 Pulse 82 Resp 18 B/P (MAP) 121/96 Pulse Ox 98 O2 Flow Rate 0 Re-Evaluation Re-Evaluation : Re-Evaluation Time: 13:23 Re-Evaluation: Resolved Progress resolved symptoms on recheck, no abd tenderness. HR 96 He would like to go home. EKG/XRAY/CT/US/VASC/MRI CT : Impression CT independently interpreted shows no free air Departure Disposition: 01 HOME / SELF CARE / HOMELESS Impression: Primary Impression: Hypokalemia Additional Impression: Cyclic vomiting syndrome Additional Impression Text Patient presents with history of cannabis hyperemesis as well as cyclic vomiting presenting for typical vomiting symptoms. Labs show mild leukocytosis likely from vomiting and mild hypokalemia. CT showing GERD/esophagitis. Is symptom cleared with Haldol and he was able to tolerate p.o.. Repeat abdominal exam was benign. His mild hypokalemia was treated with potassium supplementation Additional Instructions: Please return if you have fever or any reoccurence of your symptoms. Referrals: NO PRIMARY CARE PROVIDER (PCP) Prescriptions Potassium Chloride (Potassium Chloride) 20 Meq Tablet.er 1 TAB PO Q4H for 14 Days, #30 TAB 0 Refills Prov: VIVIANA BENNETT MD 08/18/25 Signature Scribe Signature: jl Attestation: VIVIANA Yan MD Aug 18, 2025 08:36
[2025-08-18 09:11] LABS: MEAN PLATELET VOLUME 8.1 FL (7.4-10.4); RED CELL DISTRIBUTION WIDTH 13.5 % (11.5-14.5)
[2025-08-18] MEDS: OLANZapine **IM** 10 mg inj. IM ONE (09:29)
[2025-08-18 09:35] LABS: CREATININE 0.68 MG/DL (0.60-1.10); TOTAL CARBON DIOXIDE 29.1 MMOL/L (24-32); eCRCL 159 ML/MIN; eGFR > 90 ML/MIN
[2025-08-18] MEDS: haloperidol lactate 5mg/ml inj IVH ONE (10:05)
[2025-08-18] MEDS ORDERED: potassium 20mEq/D5LR 1000ml bag IV ONE (10:05)
[2025-08-18] MEDS ORDERED: iohexol 300mg/ml 100ml inj. ONE (10:38)
[2025-08-18] MEDS: magnesium sulf-water 2g/50mL 50 ML IV ONE (11:07)
[2025-08-18] MEDS: haloperidol lactate 5mg/ml inj IM ONE (11:22)
[2025-08-18] MEDS: potassium 20mEq/D5LR 1,000 ML IV ONE (12:24)
--- NOTE | 2025-08-18 13:01 | RADIOLOGY REPORT ---
COMPUTERIZED TOMOGRAPHY ABDOMEN AND PELVIS WITH CONTRAST REASON FOR EXAM: abdominal pain COMPARISON: CT CT ABDOMEN PELVIS W/ IV CONTRAST on DOS: 06/20/25, CT CHEST ABDOMEN PELVIS on DOS: 12/04/21 TECHNIQUE: The exam was performed on a Multidetector scanner. Spiral scans were acquired from the diaphragm to the symphysis pubis after administration of IV contrast. 2-D coronal and sagittal reformatted images were provided. Radiation optimization: All CT scans at this facility use at least one of these dose optimization techniques: Automated exposure control mA and/or kV adjustment per patient size (includes targeted exams where dose is matched to clinical indication) or iterative reconstruction. CONTRAST ADMINISTRATION: 100 mL omnipaque 300 intravenously RADIATION DOSE: CTDI: 17 mGy DLP: 818 mGy-cm FINDINGS: The lung bases are grossly clear. There is no pleural effusion. There is no pericardial effusion. There is thickening of the distal esophagus. The spleen is not enlarged. The liver is normal in size and contour. The portal vein is patent. No calcified gallstone is identified. The pancreas is within normal limits. The adrenal glands are normal. The kidneys enhance symmetrically. No solid renal mass is identified. There is no hydronephrosis of either kidney. There is no abdominal aortic aneurysm. No pathologic lymphadenopathy is identified in the abdomen or pelvis. There is no free fluid. The urinary bladder is unremarkable. The prostate and seminal vesicles are within normal limits. The colonic stool burden is small. The appendix is normal. There is no pathologic distention of the small bowel. No acute osseous abnormality is identified. IMPRESSION: Diffusely thickened distal esophagus. Correlate clinically for esophagitis / GERD. No evidence of bowel obstruction. Normal appendix.
[2025-08-18] MEDS ORDERED: POTA20PA40 PO (13:29)
[2025-08-18] MEDS ORDERED: POTA-366 PO (13:30)
[2025-08-18] MEDS: potassium Cl 20 mEq SR tablet PO STA (13:40)
[2025-08-18 13:44] VITALS: BP 122/80; PULSE 110; RESP 20; O2SAT 98
== END 2025-08-18 13:46 | disposition home or self-care (01) ==
LOC: ER 08:05
DX: R11.15 Cyclical vomiting syndrome unrelated to migraine (principal); E87.6 Hypokalemia; K21.00 Gastro-esophageal reflux disease with esophagitis, without bleeding; F41.9 Anxiety disorder, unspecified; F41.0 Panic disorder [episodic paroxysmal anxiety]; F12.90 Cannabis use, unspecified, uncomplicated; J45.909 Unspecified asthma, uncomplicated; D72.829 Elevated white blood cell count, unspecified; Z88.0 Allergy status to penicillin; Z79.899 Other long term (current) drug therapy; Z98.890 Other specified postprocedural states
CPT/HCPCS: 36415; 74177; 80053; 83735; 85025; 96365; 96366; 96368; 96372; 99285; J1630; J2470; J3480; J3490; Q9967; 96375

== ENCOUNTER 2025-08-23 08:04 | Inpatient (IN) | payer MEDICAID ==
[~2025-08-23] VITALS: Ht 172.7 cm; Wt 77.0 kg
[2025-08-23] VITALS (7 sets, daily range): BP systolic 141–161; BP diastolic 86–102; PULSE 81–132; RESP 16–22; TEMP 98.2–99.3; O2SAT 95–100
[~2025-08-23 08:04] MED LIST changes: +POTA-366 PO
[2025-08-23] MEDS: metoclopramide 5 mg/ml inj IV ONE (08:47)
[2025-08-23] MEDS: normal saline 1000ML IV soln IVB ONE (08:47)
--- NOTE | 2025-08-23 09:04 | Physician Documentation ---
History of Present Illness Chief Complaint: Abdominal Pain Stated Complaint: ABD PAIN Time Seen by MD: 08:16 OK to notify your PCP?: Yes Primary Medical Doctor: Nelson Colin In Mode of Arrival: EMS HPI 25-year-old male patient with a history of cyclical vomiting and cannabis induced hyperemesis was brought to the emergency room by ambulance because of abdominal pain. The patient told me that he quit using cannabis for a month. No prior abdominal surgery. He said he has been vomiting quite a bit and now he is dry heaving. He was tachycardic and the EMS give him IV fluids and his tachycardia is gradually coming down. He was here in August [address] of the abdomen and pelvis was done and it shows thickened distal esophagus. No other complaints. Medication Reconciliation Allergies: Coded Allergies: Penicillins (Verified Allergy, Unknown, 08/18/25) Scheduled Albuterol Sulfate (Proventil Hfa), 2 PUFFS INH Q4H Aripiprazole* (Abilify*), 10 MG PO DAILY, (Reported) Budesonide/Glycopyr/Formoterol (Breztri Aerosphere Inhaler), 2 PUFFS INH Q12H, (Reported) Duloxetine HCl (Duloxetine HCl), 1 CAP PO DAILY, (Reported) Gabapentin (Gabapentin), 0.5 TAB PO DAILY, (Reported) Magnesium Oxide (Magnesium), 1 TAB PO DAILY, (Reported) Omeprazole (Omeprazole), 1 CAP PO BID, (Reported) Quetiapine Fumarate (Quetiapine Fumarate), 4 TAB PO HS, (Reported) Scheduled PRN Buspirone HCl (Buspirone HCl), 1 TAB PO BID PRN for anxiety, (Reported) Discontinued Medications Potassium Chloride (Potassium Chloride), 1 TAB PO Q4H Discontinued Reason: patient no longer taking Risperidone (Risperidone), 0.5 MG PO BID, (Reported) Discontinued Reason: patient no longer taking [Focalin xr], (Reported) Discontinued Reason: patient no longer taking Past Medical History Past Medical History: Asthma, Bronchitis, *GI/HEPATOBILIARY*, Anxiety, Panic Disorder Past Surgical History: orthopedic surgeries Alcohol Use: Abuse Drug Use: marijuana Lives with: Mother Lives In: Home Review of Systems ROS As stated above in the HPI, otherwise all systems are reviewed and negative. Physical Exam Vital Signs: Temperature: 97.9, Source: Temporal, Heart Rate: 120, Respiratory Rate: 18, BP: 144/89, Pulse Oximetry: 100, Weight: 77.000 Physical Exam Reviewed vital signs and I see tachycardia at 120 per minute. Otherwise unrem arkable. Const: Not in acute cardiopulmonary distress Head: Atraumatic Eyes: Normal Conjunctiva ENT: Normal External Ears, Nose and Mouth. Moist mucous membranes Neck: Full range of motion. No meningismus Resp: Clear to auscultation bilaterally. Normal work of breathing Cardio: Regular rate and rhythm, no murmurs. Skin well perfused heart rate 100 beats per minute Abd: Soft, mild diffuse tenderness, non-distended. Normal bowel sounds. No rebound or guarding Skin: No petechiae or rashes. Warm and dry Back: No midline or flank tenderness Ext: No cyanosis, or edema Neuro: Awake and alert Psych: Normal Mood and Affect Progress Results/Orders Results/Orders Orders - EDUARDO SEQUEIRA MD Cbc/Diff (08/23/25 08:18) Amylase (08/23/25 08:18) Lipase (08/23/25 08:18) Urinalysis, Cult If Indicated (08/23/25 08:18) Saline Lock (08/23/25 08:18) BMP (08/23/25 08:18) Drug Screen, Urine (08/23/25 08:18) Completed Orders - EDUARDO SEQUEIRA MD Metoclopramide Inj (Reglan Inj) (08/23/25 08:20) Diphenhydramine Inj (Benadryl Inj.) (08/23/25 08:20) Normal Saline 1000ml (0.9% Sodium Chlori (08/23/25 08:20) Pantoprazole 40mg Iv (Protonix 40mg Iv) (08/23/25 08:20) Medications Received in ER Medications (Trade) Dose Ordered Sig/Gissel Route PRN Reason Start Time Stop Time Status Last Admin Dose Admin (Reglan inj) 10 mg ONCE ONCE IV 08/23/25 08:20 08/23/25 08:41 DC 08/23/25 08:47 10 MG (Benadryl inj.) 25 mg ONCE ONCE IV 08/23/25 08:20 08/23/25 08:41 DC 08/23/25 08:47 25 MG (0.9% sodium chloride (NS) 1000ml IV soln) 1,000 ml ONCE ONCE IVB 08/23/25 08:20 08/23/25 08:21 DC 08/23/25 08:47 1,000 ML (Protonix 40mg IV) 40 mg ONCE ONCE IV 08/23/25 08:20 08/23/25 08:41 DC 08/23/25 08:47 40 MG Vital Signs 08/23/25 08/23/25 08/23/25 08:08 08:22 08:29 Temp 97.9 Pulse 117 120 Resp 17 23 18 B/P (MAP) 136/77 144/89 (107) Pulse Ox 100 100 Laboratory Tests Test 08/23/25 08:39 CBC Comment Chemistry Comments Medical Decision Making Findings ER Course/Med. Decision Making REVIEW of RECORD(S): Previous medical records here and/or external medical records, such as that provided directly by the patient, by EMS and/or outside medical facilities, if available, were reviewed. COMORBIDITIES history of cannabis usage, anxiety MDM During the physical examination, the findings suggestive of acute life- threatening condition such as JVD, tracheal deviation, acidotic breathing, noisy stridorous breath sounds, pulses paradoxus, muffled heart sounds, unequal breath sounds, abdominal rigidity and rebound tenderness, focal neurological deficits, cool clammy skin, severe hypotension, severe tachycardia or bradycardia are absent. Patient presenting for abdominal pain and vomiting . Vital signs reviewed. Patient is hemodynamically stable and does not meet SIRS criteria. Patient appears nontoxic on exam. He does look dehydrated. BMP showed sodium 126 potassium 2.1 chloride 81 bicarb 30.1 BUN 57 creatinine 1.16 and glucose 129. I figure out that it will be more than 4 hours to correct the potassium deficit in the emergency room. I will admit the patient to the hospital for electrolyte imbalance and dehydration. TREATMENT/DISPOSITION: The patient's presentation is most consistent with severe dehydration, hypokalemia. DISCLAIMER: Inadvertent spelling and grammatical errors are likely due to EMR/dictation software use and do not reflect on the overall quality of patient care. Note that the electronic time recorded on this note does not necessarily reflect the actual time of the patient encounter. Departure Disposition: 09 ADMITTED INPATIENT Impression: Primary Impression: Nausea and vomiting Additional Impressions: Severe dehydration Hypokalemia Referrals: NO PRIMARY CARE PROVIDER (PCP) Signature Scribe Signature: x Attestation: x OHN,EDUARDO M MD Aug 23, 2025 09:04
[2025-08-23 09:06] LABS: CREATININE 1.16 MG/DL (0.60-1.10); TOTAL CARBON DIOXIDE 30.1 MMOL/L (24-32); eCRCL 93 ML/MIN; eGFR 76 ML/MIN
[2025-08-23 09:17] LABS: MEAN PLATELET VOLUME 8.7 FL (7.4-10.4); RED CELL DISTRIBUTION WIDTH 12.7 % (11.5-14.5)
[2025-08-23] MEDS: Potassium Cl inj 40 MEQ in normal saline 500ml IV soln 500 ML IV ONE (09:38)
[2025-08-23] MEDS ORDERED: magnesium Cl slow-release 64mg tablet PO PRN (09:40)
[2025-08-23] MEDS ORDERED: magnesium sulf-water 2g/50mL 50 ML IV PRN (09:40)
[2025-08-23] MEDS ORDERED: HYDROcodone/acetaminophen 5mg/325mg tablet PO PRN (09:40)
[2025-08-23] MEDS ORDERED: magnesium hydroxide 30ml (MOM) UD suspension PO PRN (09:40)
[2025-08-23] MEDS ORDERED: magnesium sulf-water 4G/100mL 100 ML IV PRN (09:40)
[2025-08-23] MEDS ORDERED: potassium Cl 20 mEq SR tablet PO PRN ×2 (09:40)
[2025-08-23] MEDS ORDERED: mag hydrox/Alum hydrox/simeth 30ml oral suspension PO PRN (09:40)
[2025-08-23] MEDS: magnesium sulf-water 2g/50mL 50 ML IV ONE (09:54)
[2025-08-23] MEDS: normal saline 1000ml 1,000 ML IV SCH (09:58)
[2025-08-23 10:07] LABS: APTT 29 SECONDS (22-32); INR 1.2 INR
[2025-08-23] MEDS ORDERED: OMEP20CA16 PO (10:09)
[2025-08-23] MEDS ORDERED: GABA-1405 PO (10:09)
[2025-08-23] MEDS ORDERED: MAGN250T11 PO (10:09)
[2025-08-23] MEDS ORDERED: BUDE10.7 INH (10:09)
[2025-08-23] MEDS ORDERED: ARIP5TAB12 PO (10:09)
[2025-08-23] MEDS ORDERED: ondansetron/PF 4mg/2ml inj IM PRN (10:15)
[2025-08-23 10:16] LABS: PRO BRAIN NATRIURETIC PEPTIDE 121 PG/ML (0-125)
[2025-08-23 10:41] LABS: LYMPHOCYTES % (MANUAL) 6.0 % (21-51); METAMYLEOCYTES% (MANUAL) 1.0 % (0-0); MONOCYTES % (MANUAL) 8.0 % (2-12); NEUTROPHILS % (MANUAL) 85.0 % (42-75)
[2025-08-23 10:42] LABS: LARGE PLATELETS FEW; PLATELET ESTIMATE NORMAL
--- NOTE | 2025-08-23 10:48 | RADIOLOGY REPORT ---
EXAM: CT CT ABDOMEN PELVIS HISTORY: abdominal pain COMPARISON: CT CT ABDOMEN PELVIS W/ IV CONTRAST on DOS: 08/18/25, CT CT ABDOMEN PELVIS W/ IV CONTRAST on DOS: 06/20/25, CT CHEST ABDOMEN PELVIS on DOS: 12/04/21 TECHNIQUE: Helical CT images of the abdomen and pelvis were performed without IV contrast. Sagittal and coronal reformatted images were obtained. This CT exam was performed using 1 or more of the following dose reduction techniques: Automated exposure control, adjustment of the mA and/or kv according to patient size, or the use of iterative reconstruction techniques. Radiation Dose Information: CT Dose: CTDI volume is 13.53 mGy. Dose-length product is 681.38 mGy*cm FINDINGS: CT abdomen: The lung bases are clear. The heart is not enlarged. The liver, spleen, pancreas, kidneys, and adrenal glands are unremarkable. No abdominal aortic aneurysm or dissection. There is vicarious excretion of contrast within the gallbladder lumen. CT pelvis: No abnormal bowel dilatation, free air, or free fluid. The appendix and urinary bladder are unremarkable. The prostate is upper limits of normal in size. IMPRESSION: No evidence of bowel obstruction, acute appendicitis, or other acute process in the abdomen or pelvis.
[2025-08-23 11:48] LABS: LEUKOCYTE ESTERASE ,URINE NEGATIVE (Neg); NITRITES, URINE NEGATIVE (Neg); OCCULT BLOOD,URINE NEGATIVE (Neg)
[2025-08-23] MEDS: ondansetron/PF 4mg/2ml inj IV PRN (11:48)
[2025-08-23 11:51] LABS: UA COLLECTION TYPE CLN CATCH MIDSTREAM
[2025-08-23 11:54] LABS: AMORPHOUS URATES 2+; MUCUS STRANDS FEW /LPF (Neg); SQUAMOUS EPITHELIAL CELL,UR FEW /LPF (FEW)
[2025-08-23 11:58] LABS: URINE AMPHETAMINE SCREEN NEGATIVE (Neg); URINE BARBITUATE SCREEN NEGATIVE (Neg); URINE BENZODIAZEPINES SCREEN NEGATIVE (Neg); URINE CANNABINOID SCREEN POSITIVE (Neg); URINE COCAINE SCREEN NEGATIVE (Neg); URINE METHADONE SCREEN NEGATIVE (Neg); URINE OPIATE SCREEN NEGATIVE (Neg); URINE PHENCYCLIDINE SCREEN NEGATIVE (Neg)
--- NOTE | 2025-08-23 12:49 | HISTORY AND PHYSICAL-Residence ---
History & Physical Providers to CC Resident Creating Document: LISSETTE MCGUIRE, RES CC: ADOLFO ROY MD ~ History of Present Illness Primary Medical Doctor: Nelson Alvares Reason for Admit\Complaint: Cannabinoid induced hyperemesis History of Present Illness This is a 25-year-old male patient with past medical history of cannabinoid induced hyperemesis and asthma, presented to the emergency department due to intractable vomiting for the last SIX days, associated with constipation. Patient had multiple episodes of emesis associated with small specks of blood. Patient has not been able to take anything orally for the last six days. Patient's last bowel movement was six days ago. Patient complains of nonspecific abdominal pain. Patient has multiple recurrent ED encounters for cannabinoid induced hyperemesis. Allergies: Coded Allergies: Penicillins (Verified Allergy, Unknown, 08/18/25) Home Medications Home Medications Active Proventil Hfa (Albuterol Sulfate) 6.7 Gm Hfa.aer.ad 2 Puffs INH Q4H Reported Breztri Aerosphere Inhaler (Budesonide/Glycopyr/Formoterol) 160 Mcg-9 Mcg-4.8 Mcg/Actuation Hfa.aer.ad 2 Puffs INH Q12H 30 Days Abilify* (Aripiprazole) 5 Mg Tablet 10 Mg PO DAILY Gabapentin 600 Mg Tablet 0.5 Tab PO DAILY 30 Days Magnesium (Magnesium Oxide) 250 Mg Tablet 1 Tab PO DAILY 30 Days Omeprazole 20 Mg Capsule.dr 1 Cap PO BID 30 Days Duloxetine HCl 60 Mg Capsule.dr 1 Cap PO DAILY Quetiapine Fumarate 25 Mg Tablet 4 Tab PO HS Buspirone HCl 10 Mg Tablet 1 Tab PO BID PRN Past Medical History Past Medical History Asthma Cannabis induced hyperemesis syndrome Anxiety ADHD Psychiatric issues Past Social History Social History Comment Patient lives in his house with his florentino Patient's primary care doctor is [facility] Patient works at [employer] Patient has a chronic use of cannabinoids-smoke every day for the last 10 years, patient claims he quit smoking one month ago Patient also history of tobacco use he smokes three cigarettes per day and has smoked for the last 10 years Patient has history of alcohol use disorder, he normally drinks 2-3 beers everyday and last drink was six days ago Smoking: Cigarettes Alcohol Use: Abuse Drug Use: Marijuana Lives with: Mother Lives In: Home ROS ROS Constitutional: No fever, dizziness, weakness present, decrease in appetite, multiple episodes of emesis HEENT: Normal vision. No sore throat, epistaxis, tinnitus Cardiovascular: No chest pain/discomfort, palpitations, syncope. No pedal edema Respiratory: No sob, cough,hemoptysis Gastrointestinal: abdominal pain, nausea, vomiting noted. No diarrhea, melena. Genitourinary: No frquency, urgency, incontinence, nocturia. No dysuria, hematuria Musculoskeletal: Normal, no pains Endocrine: No fatigue, polydipsia, polyuria. No heat or cold intolerance Neurologic: No headache, vertigo. No weakness, numbness or tingling of extremities Psychiatric: No hallucinations/delusions, no anhedonia, no suicidal ideation Hematologic: No bruises Exam Vitals: Vital Signs Date Time Temp Pulse Resp B/P (MAP) Pulse Ox O2 Delivery O2 Flow Rate FiO2 08/23/25 11:21 98 16 132/88 (103) 100 0 08/23/25 08:08 97.9 General: General: Awake, oriented to person, place and time HEENT: Conjunctive are pink, sclerae clear, no icterus, pupil is equal in both sides, reactive to light, no ear discharge, no pharyngeal erythema or an edema. Neck: Supple, no JVD, no lymphadenopathy and thyromegaly. Chest: Equal air entry on both lungs, no additional sounds no rhonchi no wheezing at the moment. Cardiovascular: S1-S2 regular sinus rhythm and, regular rate, no gallops, no rubs, no murmurs Abdomen: No visible peristalsis, Bowel sounds present on auscultation, soft, mild tenderness present throughout the abdomen, no guarding, no rigidity Extremities: No obvious deformities, no pitting edema bilaterally, capillary refill intact, peripheral pulsations are intact on both sides Central Nervous System: No focal neurological deficits, no motor or sensory weakness in all 4 extremities, could move all 4 extremities, 2+ deep tendon reflexes, negative Babinski. Musculoskeletal: No joint swelling, deformities, inflammations, and no scoliosis and back tenderness Skin: Warm and dry. Dry oral mucosa. Diagnostic Data Last Recorded Lab Results: 08/23/25 0839 08/23/25 0839 Diagnostic Data: Laboratory Tests Test 08/23/25 08:39 Prothrombin Time 12.1 SECONDS (9.0-12.0) H INR International Normalized Ratio 1.2 INR Activated Partial Thromboplast Time 29 SECONDS (22-32) Coagulation Comments Counseling Services Smoking & Tobacco Cessation: 3-10 Minutes (Advised patient extensively about the importance of cessation of cannabinoids and how it impacts his overall health) Advance Care Planning Advanced Care plannin - 30 Minutes (I discussed advanced care planning with the patient, the patient decided he wanted to be full code) Additional Plan Cannabinoid hyperemesis syndrome Patient has a history of marijuana use for the last 10 years, patient claims he quit about one month ago Urinalysis positive for cannabinoids Patient also complained of symptoms of dysphagia Patient has not had a bowel movement in the last six days, CT abdomen was done which ruled out small-bowel obstruction Plan Initiated the patient on normal saline 100 mL/hour, patient received 1 L normal saline bolus in the ED Initiated the patient on pantoprazole 40 mg IV q.12h , haloperidol 5 mg IM q.8h p.r.n. and diphenhydramine 25 mg IV q.6 H p.r.n. Keep the patient NPO GI team consulted and patient will possibly undergo EGD tomorrow Asthma, not in acute exacerbation Patient currently has no symptoms of wheezing or shortness of breath Albuterol q.4h p.r.n., budesonide 0.5 mg q.12h scheduled Hypokalemia 2/2 hyperemesis Potassium 2.9 Replacement per protocol Acute kidney injury, most likely due to prerenal vasomotor nephropathy Mildly elevated creatinine 1.16 Continue IV fluids Leukocytosis, unknown etiology Patient has had persistent elevated leukocytosis in the past, current leukocyte is at 22.4 Neutrophil 82% and metamyelocytes 1% Patient has no fever spikes, patient has mild tachycardia which is probably associated with his underlying anxiety anxiety Patient's urinalysis was negative Patient had a CT abdomen done which was negative for any infectious cause Plan ordered chest x-ray to rule out possible pneumonia. Psychiatric issues Anxiety ADHD Continued patient's home medication duloxetine, aripiprazole and quetiapine Continued patient's home medication gabapentin(patient is unsure why he takes gabapentin) Code Status: Full code DVT Prophylaxis: Heparin Lines/Tubes: PIV Gi Prophylaxis: Protonix Nutrition: NPO PT:yes Prognosis: Guarded Disposition: We will continue to monitor the patient. Patient will possibly get an EGD tomorrow Lissette Mcguire MD Internal medicine resident,PGY-1 Date of Service: Aug 23, 2025 Billing Provider: ADOLFO ROY MD, JAHNAVI, RES Aug 23, 2025 12:49
--- NOTE | 2025-08-23 13:45 | ELECTROCARDIOGRAPH REPORT ---
[facility] Test Date: 2025-08-23 Test Time: 09:26:32 Pat Name: LAILA HAYS Department: EMERGENCY ROOM Room: ORTHO [facility] Gender: [employer] Consultant: TEA : 2000 Requested By: EDUARDO SEQUEIRA Order Number: [id number] Reading MD: Dr. Domenic Amaral Measurements Intervals [place] Rate: 94 P: 59 CT: 169 QRS: 59 QRSD: 84 T: -48 QT: 420 QTc: 526 Interpretive Statements Sinus rhythm Abnormal T, consider ischemia, diffuse leads Prolonged QT interval Electronically Signed On 08-23-2025 21:39:[address] Domenic Amaral Please click the below link to view image of tracing.
[2025-08-23] MEDS ORDERED: haloperidol lactate 5mg/ml inj IM PRN (17:40)
--- NOTE | 2025-08-23 18:49 | RADIOLOGY REPORT ---
CHEST RADIOGRAPH Indication: to rule out pneumonia Technique: Frontal and lateral view of the chest was obtained Comparison: DI CHEST,SINGLE VIEW on DOS: 06/20/25, CT CHEST ABDOMEN PELVIS on DOS: 12/04/21 FINDINGS: Lines and Tubes: None Lungs: Congestion Pleura: No effusion. No pneumothorax. Cardiomediastinal contours: Unremarkable Bones: Unremarkable IMPRESSION: Increased interstital prominence. This may represent pulmonary vascular congestion and/or viral pneumonia. Clinical correlation advised.
[2025-08-23] MEDS: albuterol 2.5 MG/3 ML nebule NEB PRN (19:53)
[2025-08-23] MEDS: budesonide 0.5mg/2ml UD nebule IH SCH (19:53)
[2025-08-23] MEDS: K and/or MAG REPLACEMENT MC SCH (20:00)
[2025-08-23] MEDS: docusate sod 100mg capsule PO SCH (20:00)
[2025-08-23] MEDS ORDERED: CefTRIAXone/D5W-Rocephin 1gm 50 ML IV ONE (20:40)
[2025-08-23] MEDS: potassium Cl 40MEQ/1/2NS 520ml 520 ML IV PRN (20:59)
[2025-08-23] MEDS: heparin, porcine 5000 units/ml vial SQ SCH (21:00)
[2025-08-23] MEDS: CefTRIAXone 500MG IM Kit w/LIDOcaine IM ONE (21:40)
[2025-08-23] MEDS: CefTRIAXone/D5W-Rocephin 1gm 50 ML IV ONE (22:05)
[2025-08-23] MEDS: metoclopramide 5 mg/ml inj IV PRN (23:07)
[2025-08-24] VITALS (26 sets, daily range): BP systolic 94–161; BP diastolic 61–107; PULSE 51–132; RESP 11–18; TEMP 97.2–98.4; O2SAT 96–100
[2025-08-24] MEDS: morphine 4 MG/ML inj SYRINge IV PRN (01:32)
[2025-08-24 06:18] LABS: CREATININE 0.86 MG/DL (0.60-1.10); TOTAL CARBON DIOXIDE 32.2 MMOL/L (24-32); eCRCL 126 ML/MIN; eGFR > 90 ML/MIN
[2025-08-24 06:28] LABS: MEAN PLATELET VOLUME 8.5 FL (7.4-10.4); RED CELL DISTRIBUTION WIDTH 12.5 % (11.5-14.5)
[2025-08-24] MEDS ORDERED: CefTRIAXone/D5W-Rocephin 1gm 50 ML IV SCH (08:00)
[2025-08-24] MEDS: duloxetine 30mg CAPSULE.DR PO SCH (08:34)
--- NOTE | 2025-08-24 11:50 | PROGRESS NOTE- Residence ---
Progress Note - Resident Providers to CC Resident Creating Document: AMBROCIO [place] RES ~ Antibiotic Timeout Antibiotic Ordered?: No Subjective Patient was seen and examined at the bedside. He complains of epigastric pain but denies new episodes of vomiting. No diarrhea or urinary symptoms. Patient also denies chest pain, shortness of breath or productive cough. Objective Vital Signs Date Time Temp Pulse Resp B/P (MAP) Pulse Ox O2 Delivery O2 Flow Rate FiO2 08/24/25 08:28 18 08/24/25 07:14 88 Room Air 0.0 08/24/25 07:07 98 21 08/24/25 06:00 97.2 139/83 (101) Result Diagram: 08/24/25 0506 08/24/25 0506 General: Awake, oriented to person, place and time HEENT: Conjunctive are pink, sclerae clear, no icterus, dry mucous membranes, pupil is equal in both sides, reactive to light, no ear discharge, no pharyngeal erythema or an edema. Neck: Supple, no JVD, no lymphadenopathy and thyromegaly. Chest: Equal air entry on both lungs, no additional sounds no rhonchi no wheezing at the moment. Cardiovascular: S1-S2 regular sinus rhythm and, regular rate, no gallops, no rubs, no murmurs Abdomen: Soft, mild tender in the epigastric region, Bowel sounds present on auscultation, no guarding, no rigidity Extremities: No obvious deformities, no pitting edema bilaterally, capillary refill intact, peripheral pulsations are intact on both sides Central Nervous System: No focal neurological deficits, no motor or sensory weakness in all 4 extremities, could move all 4 extremities, 2+ deep tendon reflexes, negative Babinski. Musculoskeletal: No joint swelling, deformities, inflammations, and no scoliosis and back tenderness Skin: Warm and dry. Dry oral mucosa. Coagulation Studies Laboratory Tests Test 08/23/25 08:39 Prothrombin Time 12.1 SECONDS (9.0-12.0) H INR International Normalized Ratio 1.2 INR Activated Partial Thromboplast Time 29 SECONDS (22-32) Coagulation Comments Plan Plan Assessment 25-year-old male patient admitted for severe emesis most likely secondary to cannabinoid overuse. 1. Cannabinoid hyperemesis syndrome Patient has a history of marijuana use for the last 10 years, patient claims he quit about one month ago Urinalysis positive for cannabinoids Patient also complained of symptoms of dysphagia Patient has not had a bowel movement in the last six days, CT abdomen was done which ruled out small-bowel obstruction Plan Initiated the patient on normal saline 100 mL/hour, patient received 1 L normal saline bolus in the ED Initiated the patient on pantoprazole 40 mg IV q.12h , haloperidol 5 mg IM q.8h p.r.n. and diphenhydramine 25 mg IV q.6 H p.r.n. Keep the patient NPO GI team consulted and patient will possibly undergo EGD tomorrow 08/24/2025 Undergoing EGD today in afternoon Controlled nausea and vomiting today Continue pantoprazole IV, switch to p.o. tomorrow 2. Hypokalemia and hyponatremia 2/2 hyperemesis Potassium 2.9, Na 136 Replacement per protocol 08/24/2025 K 3.6, Na 134 Continue normal saline at 100 mL/hr 3. Asthma, not in acute exacerbation Patient currently has no symptoms of wheezing or shortness of breath Albuterol q.4h p.r.n., budesonide 0.5 mg q.12h scheduled 4. Acute kidney injury, most likely due to prerenal vasomotor nephropathy - resolved Mildly elevated creatinine 1.16 Continue IV fluids 08/24/2025 Cr 0.86, BUN 27, back to baseline 5. Chronic leukocytosis, unknown etiology Patient has had persistent elevated leukocytosis in the past, current leukocyte is at 22.4 Neutrophil 82% and metamyelocytes 1% Patient has no fever spikes, patient has mild tachycardia which is probably associated with his underlying anxiety anxiety Patient's urinalysis was negative Patient had a CT abdomen done which was negative for any infectious cause Ordered chest x-ray to rule out possible pneumonia. 08/24/2025 CXR: Increased interstital prominence. This may represent pulmonary vascular congestion and/or viral pneumonia. Clinical correlation advised. CT abdomen: No evidence of bowel obstruction, acute appendicitis, or other acute process in the abdomen or pelvis. Procalcitonin < 0.05, WBC 15.1, stable 6. Cannabinoid use disorder 7. Alcohol use disorder 8. Nicotine use disorder Substance use navigator social service consulted 9. Anxiety 10. ADHD Continued patient's home medication duloxetine, aripiprazole and quetiapine Continued patient's home medication gabapentin(patient is unsure why he takes gabapentin) Code Status: Full code DVT Prophylaxis: Heparin Lines/Tubes: PIV Gi Prophylaxis: Protonix Nutrition: NPO until EGD PT:yes Prognosis: Guarded Disposition: Continue medical treatment. Pending EGD. Resident MD attestation The above note has been reviewed and supervised by a senior resident PGY2/PGY3 Patient was seen, examined and discussed with the attending physician Date of Service: Aug 24, 2025 Billing Provider: ADOLFO ROY MD, LUCAS, RES Aug 24, 2025 11:50
[2025-08-24] MEDS ORDERED: MIDAZolam 1 MG/ML 5ML VIAL ONE (13:36)
[2025-08-24] MEDS ORDERED: fentaNYL/PF 50MCG/1 ML 2ML syringe ONE (13:36)
[2025-08-25 02:00] VITALS: BP 115/67; PULSE 58; RESP 16; TEMP 98; O2SAT 95
[2025-08-25 06:00] VITALS: BP 132/79; PULSE 58; RESP 14; TEMP 98; O2SAT 100
[2025-08-25 06:17] LABS: CREATININE 0.85 MG/DL (0.60-1.10); TOTAL CARBON DIOXIDE 32.0 MMOL/L (24-32); eCRCL 127 ML/MIN; eGFR > 90 ML/MIN
[2025-08-25 06:35] LABS: MEAN PLATELET VOLUME 8.8 FL (7.4-10.4); RED CELL DISTRIBUTION WIDTH 13.0 % (11.5-14.5)
--- NOTE | 2025-08-25 09:01 | CONSULTATION ---
DATE OF CONSULTATION: 08/23/2025 DICTATING PHYSICIAN: Nisha Lange MD REASON FOR CONSULTATION: Abdominal pain, nausea, and vomiting. HISTORY OF PRESENT ILLNESS: The patient is 25 years old with history of heavy alcoholism for about 15 years, which he stopped about 2 years ago, also has a history of cannabis use, which he quit about a few days ago, comes in with a 6-day history of nausea and vomiting. Apparently, he has been vomiting essentially whatever he ingests, with specks of blood in it. No significant melena. He says he has quit drinking in the past 2 years. He has not had any alcohol-related complications like hematemesis or seizures. He has not had a bowel movement for the past 6 days as well. He complains of periumbilical abdominal pain, which is nondescriptive without any aggravating or relieving factors. He does have a history of bipolar disorder and he has been on psychotropic medications. Please see the list of medications for details. PAST MEDICAL HISTORY: As above. FAMILY HISTORY AND PERSONAL HISTORY: Noncontributory. REVIEW OF SYSTEMS: A 12-point review of systems is essentially the same as history of present illness. PHYSICAL EXAMINATION: GENERAL: He is awake, alert, appears somewhat anxious, friendly, cooperative. VITAL SIGNS: Normal. HEART AND LUNGS: Normal. ABDOMEN: Soft, nontender. No masses. No organomegaly. Bowel sounds are present. EXTREMITIES: There were no clubbing, cyanosis, or edema. NEUROLOGIC: Cranial nerves bilaterally within normal limits. HEMATOLOGIC: No anemia, petechiae or purpura. PSYCHOLOGICAL: Within normal limits. IMPRESSION: The patient with persistent nausea and vomiting, very likely secondary to cannabis-induced hyperemesis. This has been discussed with the patient. Other etiologies have to be included. Apparently, he gives a history of having had what appears like a small bowel ileus a couple of months ago at which time he was admitted, was treated with NG tube suction and he apparently eventually got discharged against medical advice due to discomfort from the NG tube. Keeping that in mind, we will proceed with an endoscopy tomorrow for further evaluation. The risks and benefits explained, understands and wishes to proceed. RECOMMENDATIONS: Further recommendations will be made after the endoscopy. Nisha Lange MD TID: [id number] RECEIPT: [id number] RADHA/MARK
[2025-08-25 11:59] VITALS: PULSE 73; RESP 18; O2SAT 100
[2025-08-25] MEDS ORDERED: ONDA-243 PO (12:44)
[2025-08-25] MEDS ORDERED: propofol 10mg/ml 20ml vial IV ONE (15:09)
--- NOTE | 2025-08-25 19:54 | DISCHARGE SUMMARY-Residence ---
Discharge Summary Providers to CC Resident Creating Document: DILIP LEWIS, YEISON ~ Discharge Summary Admission Diagnosis: Cannabinoid Induced hyperemesis Hospital Course DATE OF ADMISSION: 08/23/25 DATE OF DISCHARGE: 08/25/25 Discharge Diagnosis\Comment: Cannabinoid hyperemesis syndrome Hypokalemia Resolved Hyponatremia Resolved Asthma, not in acute exacerbation Acute kidney injury, most likely due to prerenal vasomotor nephropathy - resolved Chronic leukocytosis, Resolved Cannabinoid use disorder Alcohol use disorder Nicotine use disorder Anxiety ADHD Operations\Procedures: EGD Consultants: Fire Sprinkler Fitter Complications: none Condition on DC: Stable New Medications: ONDANSETRON ODT 4mg tablet (Ondansetron Odt) 4 Mg Tab.rapdis 1 TAB PO Q6H PRN PRN for nausea/vomiting for 4 Days, #16 TAB 0 Refills Continued Medications: Albuterol Sulfate (Proventil Hfa) 6.7 Gm Hfa.aer.ad 2 PUFFS INH Q4H for wheezing, #1 INHALER Aripiprazole* (Abilify*) 5 Mg Tablet 10 MG PO DAILY, TAB Budesonide/Glycopyr/Formoterol (Breztri Aerosphere Inhaler) 160 Mcg-9 Mcg-4.8 Mcg/Actuation Hfa.aer.ad 2 PUFFS INH Q12H for 30 Days, #10.7 GM 0 Refills Buspirone HCl (Buspirone HCl) 10 Mg Tablet 1 TAB PO BID PRN for anxiety Duloxetine HCl (Duloxetine HCl) 60 Mg Capsule.dr 1 CAP PO DAILY Gabapentin (Gabapentin) 600 Mg Tablet 0.5 TAB PO DAILY for 30 Days, #90 TAB 0 Refills Magnesium Oxide (Magnesium) 250 Mg Tablet 1 TAB PO DAILY for 30 Days, #30 TAB 0 Refills Omeprazole (Omeprazole) 20 Mg Capsule.dr 1 CAP PO BID for 30 Days, #30 CAP 0 Refills Quetiapine Fumarate (Quetiapine Fumarate) 25 Mg Tablet 4 TAB PO HS Discharge Summary: Hospital Course This is a 25-year-old male with a history of cannabinoid-induced emesis, asthma, ADHD, anxiety, and cannabinoid use disorder who presented to the ER with intractable vomiting. He was started on IV fluids 1 L NS in the ER, followed by 100 mL/hr and received multiple doses of ondansetron and metoclopramide with . For constipation, he was started on Colace, as he reported no bowel movement for the past six days. CT abdomen ruled out small bowel obstruction. Urine toxicology was positive for cannabinoids. In view of persistent vomiting, Gastroenterology was consulted, and EGD was performed which revealed LA Grade D reflux esophagitis and erythematous mucosa in the antrum, which was biopsied results are awaiting. Patient was also found to have hypokalemia, likely secondary to vomiting, which was corrected per potassium replacement protocol and KCL 40 meq and acute kidney injury that resolved with IV fluids. He also had hyponatremia which was treated IV fluids. His chronic leukocytosis was monitored; infectious workup including CT abdomen and procalcitonin was unremarkable and chest x ray which showed increased interstitial prominence Asthma was managed with PRN albuterol and budenoside which patient refused. His psychiatric medications, including quetiapine, duloxetine, and aripiprazole, were continued. Substance use navigator was c onsulted for cannabinoid use disorder. At the time of discharge, the patient was clinically stable, tolerating diet, and symptoms had significantly improved. Patient was also counselled for cannabinoid, alcohol and tobacco cessation. Upper Endoscopy performed on 08/24/25 Impression: LA GRADE D REFLUX ESOPHAGITIS with no bleeding Eryhematous mucosa in antrum.biopsed Normal Duodenal bulb and second portion of Duodenum Physical Examination on Discharge General: Awake, oriented to person, place and time HEENT: Conjunctive are pink, sclerae clear, no icterus, pupil is equal in both sides, reactive to light, no ear discharge, no pharyngeal erythema or an edema. Neck: Supple, no JVD, no lymphadenopathy and thyromegaly. Chest: Equal air entry on both lungs, no additional sounds no rhonchi no wheezing at the moment. Cardiovascular: S1-S2 regular sinus rhythm and, regular rate, no gallops, no rubs, no murmurs Abdomen: No visible peristalsis, Bowel sounds present on auscultation, soft,non tender abdomen, no guarding, no rigidity Extremities: No obvious deformities, no pitting edema bilaterally, capillary refill intact, peripheral pulsations are intact on both sides Central Nervous System: No focal neurological deficits, no motor or sensory wea kness in all 4 extremities, could move all 4 extremities, 2+ deep tendon reflexes, negative Babinski. Musculoskeletal: No joint swelling, deformities, inflammations, and no scoliosis and back tenderness Skin: Warm and dry Vital Signs Date Time Temp Pulse Resp B/P (MAP) Pulse Ox O2 Delivery O2 Flow Rate FiO2 08/25/25 11:59 73 18 100 Room Air* 0 21 08/25/25 06:00 98.0 132/79 (96) Labs on Discharge Day Test 08/25/25 05:10 White Blood Count 9.4 X10'3 Red Blood Count 3.96 X10'6 Hemoglobin 12.4 g/dl Hematocrit 34.5 % Mean Corpuscular Volume 87.2 FL Mean Corpuscular Hemoglobin 31.2 PG Mean Corpuscular Hemoglobin Concent 35.8 g/dL Red Cell Distribution Width 13.0 % Platelet Count 258 X10'3 Mean Platelet Volume 8.8 FL Neutrophils (%) (Auto) 55.7 % Lymphocytes (%) (Auto) 31.9 % Monocytes (%) (Auto) 8.6 % Eosinophils (%) (Auto) 3.1 % Basophils (%) (Auto) 0.7 % Neutrophils # (Auto) 5.2 X10'3 Lymphocytes # (Auto) 3.0 X10'3 Monocytes # (Auto) 0.8 X10'3 Eosinophils # (Auto) 0.3 X10'3 Basophils # (Auto) 0.1 X10'3 CBC Comment Sodium Level 138 MMOL/L Potassium Level 4.1 MMOL/L Chloride Level 101 MMOL/L Carbon Dioxide Level 32.0 MMOL/L Anion Gap 5 Blood Urea Nitrogen 18 MG/DL Creatinine 0.85 MG/DL Estimated GFR/1.73 m2 > 90 ML/MIN BUN/Creatinine Ratio 21.2 Glucose Level 106 MG/DL Calcium Level 8.6 MG/DL Magnesium Level 2.3 MG/DL Total Bilirubin 0.9 MG/DL Aspartate Amino Transf (AST/SGOT) 26 U/L Alanine Aminotransferase (ALT/SGPT) 41 U/L Alkaline Phosphatase 98 IU/L Total Protein 6.1 G/DL Albumin 3.3 G/DL Globulin 2.8 G/DL Albumin/Globulin Ratio 1.[address] SCAN ABDOMEN AND PELVIS CT abdomen: The lung bases are clear. The heart is not enlarged. The liver, spleen, pancreas, kidneys, and adrenal glands are unremarkable. No abdominal aortic aneurysm or dissection. There is vicarious excretion of contrast within the gallbladder lumen. CT pelvis: No abnormal bowel dilatation, free air, or free fluid. The appendix and urinary bladder are unremarkable. The prostate is upper limits of normal in size. IMPRESSION: No evidence of bowel obstruction, acute appendicitis, or other acute process in the abdomen or pelvis. Chest X-Ray: Increased interstital prominence. This may represent pulmonary vascular congestion and/or viral pneumonia Discharge Intructions Follow up with PCP within 1 week of discharge. Check your CBC,CMP with PCP within 1 week of discharge Follow up with Gastroenterlogist Dr Barone within 2 weeks of discharge office number [phone], Call for appointment. Strictly Avoid cannabis as it worses vomitting Prescribe medication for vomitting, take it as needed Advance your diet as tolerated Call 911 or go to nearest ER if vomiting worsens or any emergency. *Problems/Diagnosis: (1) Hypokalemia Status: Resolved (2) Nausea and vomiting Status: Resolved (3) Vomiting Status: Resolved Total Time Spent on D/C: > 30 Minutes Date of Service: Aug 25, 2025 Billing Provider: ADOLFO ROY MD, SANJAY, RES Aug 25, 2025 19:54
== END 2025-08-25 15:10 | disposition home or self-care (01) | DRG 249 ==
LOC: ER 08:04 → ED HOLD 09:46 → ORTHO 4S 14:45
PROVIDERS: ADMIT Family Medicine; ATTEND Family Medicine
PROC: 0DB78ZX Excision of Stomach, Pylorus, Via Natural or Artificial Opening Endoscopic, Diagnostic (ICD-10-PCS; principal; 2025-08-24 13:28)
DX: R11.16 Cannabis hyperemesis syndrome (principal); N17.0 Acute kidney failure with tubular necrosis; F17.210 Nicotine dependence, cigarettes, uncomplicated; E86.0 Dehydration; E87.6 Hypokalemia; F31.9 Bipolar disorder, unspecified; J45.909 Unspecified asthma, uncomplicated; F41.9 Anxiety disorder, unspecified; F90.9 Attention-deficit hyperactivity disorder, unspecified type; E87.1 Hypo-osmolality and hyponatremia; F10.10 Alcohol abuse, uncomplicated; K21.00 Gastro-esophageal reflux disease with esophagitis, without bleeding; Y90.9 Presence of alcohol in blood, level not specified; F12.10 Cannabis abuse, uncomplicated; Z88.0 Allergy status to penicillin; Z79.899 Other long term (current) drug therapy; Z71.6 Tobacco abuse counseling
CPT/HCPCS: 36415; 43239; 71046; 74176; 80048; 80053; 80305; 81001; 82150; 83605; 83690; 83735; 83880; 84132; 84145; 85007; 85025; 85610; 85651; 85730; 86140; 87040; 87081; 93005; 94640; 94760; 99285; A4615; A4620; A6258; G0378; J0696; J1200; J1644; J2250; J2270; J2405; J2470; J2704; J2765; J3010; J3480; J7030; J7040; J7120